=== PATIENT | female | born 1945 | race African-American/Black ===

== ENCOUNTER 2018-02-25 17:26 | Emergency (ER) | payer OTHER, MEDICARE ==
[~2018-02-25 17:26] MED LIST: ALBUTEROL0.09 MG/A1 INH; ALENDRONATE SOD70 M1 PO; ASPIR 8181 MG PO; AUGMENTIN 500M500 MG PO; DILTIAZEM HCL360 MG PO; HYDRODIURIL 112.5 M1 PO; HYDRODIURIL 2525 MG PO; LEVEMIR FL100 UNIT/1 SC; METOPROLOL SUC100 MG PO; MIRALAX119 GM PO; NEXIUM 40MG40 MG PO; NICODERM C14 MG/24 H TOP; NOVOLOG FL100 UNIT/1 SC; ONDANSETRON HYDR4 MG PO; OXYCODONE HCL15 MG PO; OXYCODONE HYDRO30 MG PO; POLYTRIM O200 GTT/BO OPH; PREDNISONE 20MG20 MG PO; ROXICODONE15 MG PO; TYLENOL ARTHRI650 MG PO; ZITHROMAX Z PA250 MG PO; ZOFRAN4 M1 SL
[2018-02-25 18:04] LABS: ABSOLUTE BASOPHIL COUNT 0 /CUMM (0.0-0.2); ABSOLUTE EOSINOPHIL COUNT 0.1 /CUMM (0.0-0.7); ABSOLUTE GRANULOCYTE CT 4.5 /CUMM (1.4-6.5); ABSOLUTE MONOCYTE COUNT 0.4 /CUMM (0.10-0.60); BASOPHIL % 0.2 % (0.0-2.0); MEAN CORPUSCULAR HGB 23.7 PG (27.0-31.0); MEAN CORPUSCULAR HGB CONC 32.3 G/DL (33.0-37.0); MEAN CORPUSCULAR VOLUME 73.3 FL (81.0-99.0); MEAN PLATELET VOLUME 8.5 FL (7.4-10.4); PLATELET COUNT 334 /CUMM (130-400); RBC DISTRIBUTION WIDTH 17.5 % (11.5-14.5); RED BLOOD CELL CT 5.72 /CUMM (4.20-5.40); WHITE BLOOD CELL COUNT 7.1 /CUMM (4.8-10.8)
--- NOTE | 2018-02-25 19:01 | ED GENERAL ADULT ---
History of Present Illness General Chief Complaint: General Adult Stated Complaint: BIBA MULTIPLE COMPLAINTS Source: patient, family, old records Exam Limitations: no limitations Vital Signs & Intake/Output Vital Signs & Intake/Output Vital Signs Date Time Temp Pulse Resp B/P B/P Pulse O2 O2 Flow FiO2 Mean Ox Delivery Rate 02/25 1953 97.9 75 18 116/61 96 Room Air 02/25 1758 93 Nasal 2.0L Cannula 02/25 1737 22 92 Nasal 2.0L Cannula 02/25 1732 87 18 160/80 88 Room Air Allergies Coded Allergies: lisinopril (Severe, ANGIODEMA 02/19/16) Reconcile Medications Albuterol Sulfate (Albuterol Sulfate Hfa) 90 MCG HFA.AER.AD 2 PUFF INH Q4-6 PRN PRN SHORTNESS OF BREATH 90 MCG PER PUFF Alendronate Sodium 70 MG TAB 1 TAB PO Q168 BONES (Reported) TAKES ON SATURDAY Baclofen 10 MG TABLET 1 TAB PO TIDPRN PRN muscle spasm/strain DILTIAZEM HCL (Diltiazem ER) 360 MG CAPSULE.ER 360 MG PO DAILY HTN (Reported) Esomeprazole (Nexium) 40 MG CAPSULE.DR 40 MG PO DAILY AC GERD (Reported) Hydrochlorothiazide (Hydrodiuril 25 MG Tab) 25 MG TABLET 0.5 TAB PO DAILY BP (Reported) Insulin Aspart, Recombinant (Novolog Flexpen) 100 UNIT/ML INSULN.PEN Diabetes ( Reported) below 80 no coverage 80-100 no coverage 101-150 no coverage 151-200 mg/dl 3 units 201-250 mg/dl 6 units 251-300 mg/dl 8 units 301-350 mg/dl 10 units 351-400 mg/dl 12 units come to ED if >400 Insulin Detemir (Levemir Flextouch) 100 UNIT/ML (3 ML) INSULN.PEN 22 UNITS SC QPM DIABETES (Reported) Metoprolol Succinate 100 MG TAB.ER.24H 100 MG PO DAILY HTN (Reported) Ondansetron (Zofran Odt) 4 MG TAB.RAPDIS 1 TAB SL Q8HR PRN NAUSEA ONDANSETRON HCL (Ondansetron Hydrochloride) 4 MG TABLET 1 TAB PO PRN NAUSEA ( Reported) OXYCODONE HCL (Oxycodone HCl) 15 MG TABLET 1 TAB PO Q4-6 PRN PRN PAIN ( Reported) Polyethylene Glycol 3350 (Miralax) 119 GM POWDER 17 GM PO BID CONSTIPATION mix with water, juice, soda, coffee or tea ...TWICE A DAY X 3 DAYS AND THEN EVERY DAY. Polyethylene Glycol 3350 (Miralax) 17 GRAM/DOSE POWDER 17 GM PO DAILY constipation mix with water, juice, soda, coffee or tea Polytrim (Polytrim Eye Drops) 200 GTT/BOT GTT 1 GTT OPH Q6 PRN CONJUNCTIVITIS Polytrim (Polytrim Eye Drops) 10,000 UNIT-1 MG/ML DROPS 1 GTT OPH Q4HR CONJUNCTIVITIS Tramadol HCl (Ultram) 50 MG TABLET 1 TAB PO Q6P PRN severe pain Triage Note: 72F BIBA FOR MULTIPLE COMPLAINTS, PRIMARILY FOCUSED ON ABDOMEN WHICH IS MORE DISTENDED THAN USUAL. REPORTS LAST BM 3 DAYS AGO. CHRONIC OPIOID USE FOR CHRONIC PAIN (HYDROCODONE). DENIES CHEST PAIN. INTERMITTENT SOB NOT DIFFERENT FROM BASELINE, 1PPD X30 YEARS SMOKER. O2 SAT 88% ON ARRIVAL. CHRONIC COUGH WITH CLEAR SPUTUM. ALSO REPORTS MID/LOW BACK PAIN 10/10 UNRELIEVED BY MEDS AT HOME (LAST DOSE 2PM). +N/-V. DENIES FEVERS OR CHILLS. FOCAL NEUROS GROSSLY INTACT, NO FACIAL ASSYMMETRY OR WEAKNESS DEFICITS NOTED. DENIES NUMBNESS/TINGLING. DENIES DYSURIA OR HEMATURIA. Triage Nurses Notes Reviewed? yes Onset: 3 days Duration: day(s):, constant, continues in ED, getting worse Timing: recent history Injury Environment: home Severity: moderate, severe Modifying Factors: Improves With: immobilization, rest. Worsens With: movement. Associated Symptoms: back pain LMP (ages 10-50): post menopausal : No Patient currently breastfeeds: No HPI: 3 days prior to admission patient complains of progressive sharp low back pain constant nonradiating worse with turning bending. She also complains of generalized abdominal discomfort without stool for 3 days. She denies fever chills nausea vomiting diarrhea chest pain cough shortness breath headache dysuria rash bleeding loss of control of bowel bladder. Past History Travel History Traveled to [place] past 21 day No Medical History Any Pertinent Medical History? 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 No Review of Systems Review of Systems Constitutional: Reports: no symptoms. EENTM: Reports: no symptoms. Respiratory: Reports: no symptoms. Cardiovascular: Reports: no symptoms. GI: Reports: see HPI, abdominal pain, constipation. Genitourinary: Reports: no symptoms. Musculoskeletal: Reports: see HPI, back pain. Skin: Reports: no symptoms. Neurological/Psychological: Reports: no symptoms. Hematologic/Endocrine: Reports: no symptoms. Immunologic/Allergic: Reports: no symptoms. All Other Systems: Reviewed and Negative Physical Exam Physical Exam General Appearance: well developed/nourished, alert, awake, anxious, severe distress, obese Head: atraumatic, normal appearance Eyes: Bilateral: normal appearance, PERRL, EOMI. Ears, Nose, Throat: normal pharynx, normal ENT inspection, hearing grossly normal Neck: normal inspection, supple, full range of motion, no midline tenderness Respiratory: normal breath sounds, chest non-tender, no respiratory distress, quiet respiration, lungs clear Cardiovascular: regular rate/rhythm, normal peripheral pulses, norml femoral pulses equa Peripheral Pulses: 4+ carotid (R), 4+ carotid (L) Gastrointestinal: normal bowel sounds, soft, non-tender, no organomegaly, distention Back: normal inspection, decreased range of motion, no vertebral tenderness Extremities: normal inspection, normal capillary refill, normal range of motion, no edema Neurologic/Psych: no motor/sensory deficits, awake, alert, oriented x 3, normal mood/affect, 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 Skin: intact, normal color, warm/dry Lymphatic: no anterior cervical jacques Core Measures ACS in differential dx? No CVA/TIA Diagnosis: No Sepsis Present: No Sepsis Focused Exam Completed? No Progress Differential Diagnoses I considered the following diagnoses in my evaluation of the patient: Spinal stenosis facet arthropathy SBO constipation Plan of Care: Orders Procedure Date/time Status TROPONIN LEVEL 02/26 1740 Complete MAGNESIUM 02/25 174 Complete LIPASE 02/25 174 Complete COMPREHENSIVE METABOLIC PANEL 02/25 174 Complete CBC WITHOUT DIFFERENTIAL 02/26 1740 Complete EKG 02/25 172 Active Current Medications Sig/Otto Start time Last Medication Dose Stop Time Status Admin Flumazenil 0.125 MG ONCE ONE 02/25 2215 AC (Romazicon 0.5MG/5ML 02/26 2216 Inj) Laboratory Tests 02/25/181754: Anion Gap 10, Estimated GFR > 60, BUN/Creatinine Ratio 30.0 H, Glucose 374 H, Calcium 9.4, Magnesium 1.6, Total Bilirubin 0.7, AST 15, ALT 23, Alkaline Phosphatase 98, Troponin I < 0.01, Total Protein 7.8, Albumin 4.3, Globulin 3.5, Albumin/Globulin Ratio 1.2, Lipase 28, CBC w Diff NO MAN DIFF REQ, RBC 5.72 H, MCV 73.3 L, MCH 23.7 L, MCHC 32.3 L, RDW 17.5 H, MPV 8.5, Gran % 64.0, Lymphocytes % 28.7, Monocytes % 6.1, Eosinophils % 1.0, Basophils % 0.2, Absolute Granulocytes 4.5, Absolute Lymphocytes 2.0, Absolute Monocytes 0.4, Absolute Eosinophils 0.1, Absolute Basophils 0 Diagnostic Imaging: Viewed by Me: CT Scan. Discussed w/RAD: CT Scan. Radiology Impression: 1. There is a moderate volume of abdominal ascites now present new since prior CAT scan 05/07/2015. 2. No dilated bowel loop. No evidence for bowel obstruction or bowel wall detail is limited due to the presence of the abdominal ascites. There is a large volume of stool in the colon. No transition point to suggest obstruction. Initial ED EKG: normal axis, normal intervals, normal p-waves, normal QRS complex, normal sinus rhythm, no ST T wave changes Prior EKG: unchanged Rhythm Strip: normal sinus rhythm Comments: Daughter impatient with patient sleeping. Romazicon administered to reverse ativan. Departure Departure Time of Disposition: 2208 Disposition: HOME OR SELF CARE Condition: Stable Clinical Impression Primary Impression: Hyperglycemia Secondary Impressions: Arthritis, lumbar spine, Constipation Referrals: Bailey Garcia APRN (PCP/Family) Departure Forms: Customer Survey General Discharge Information Prescriptions: Current Visit Scripts Polyethylene Glycol 3350 (Miralax) 17 GM PO DAILY #527 GM mix with water, juice, soda, coffee or tea Baclofen 1 TAB PO TIDPRN PRN muscle spasm/strain #30 TAB Tramadol HCl (Ultram) 1 TAB PO Q6P PRN severe pain #30 TAB Critical Care Note Critical Care Note Critical Care Time: 30-74 min (40)
--- NOTE | 2018-02-25 19:20 | CT SCAN REPORT ---
EXAMINATION: CT ABDOMEN AND PELVIS WITHOUT CONTRAST CLINICAL INFORMATION: Small bowel obstruction. COMPARISON: CT scan abdomen pelvis 02/19/2016 TECHNIQUE: Multidetector volumetric imaging was performed from the superior aspect of the liver through the pubic symphysis. Sagittal and coronal reformatted images were obtained on the technologist's workstation. DLP: 254.95 mGy-cm FINDINGS: LUNG BASES: The visualized lung bases are unremarkable. LIVER, GALLBLADDER, AND BILIARY TREE: The liver is normal in size, shape, and attenuation. No focal hepatic lesion or biliary ductal dilatation is present. The gallbladder is unremarkable with no evidence of radiopaque gallstones, gallbladder wall thickening, or obvious pericholecystic inflammatory changes. PANCREAS: Unremarkable. SPLEEN: Unremarkable. ADRENAL GLANDS: Unremarkable. KIDNEYS AND URETERS: Prominent extrarenal pelvis of left kidney again seen similar prior study. There is no hydroureter. No renal or ureteral calculus. There is a stable hypodensity in the upper pole cortex of left kidney consistent with a renal cyst measuring about 2 cm. BLADDER: Unremarkable. GASTROINTESTINAL TRACT: There is limited detail of the bowel due to the presence of abdominal ascites and lack of oral contrast. There is a surgical suture line in the mid central pelvis. There is no dilated bowel loop. There is no transition point to suggest obstruction. There is a large volume of stool throughout the colon. There are diverticula of the colon but no focal bowel wall thickening to suggest diverticulitis. The appendix is not identified. MESENTERY: There is a moderate volume of abdominal ascites. This is new since prior exam 05/07/2015. ABDOMINAL WALL: No significant hernia is appreciated. LYMPH NODES: Normal. VASCULAR: Atherosclerotic vascular wall calcifications of aorta and iliac vessels without aneurysm. PELVIC VISCERA: By history patient has had prior hysterectomy. OSSEOUS STRUCTURES: Degenerative spondylosis of spine with vacuum disc phenomena endplate sclerosis and spurring L4-L5 L5-S1. There is central depression of the superior endplate of the L1 vertebrae that is chronic unchanged since prior CAT scan 05/07/2015. IMPRESSION: 1. There is a moderate volume of abdominal ascites now present new since prior CAT scan 05/07/2015. 2. No dilated bowel loop. No evidence for bowel obstruction or bowel wall detail is limited due to the presence of the abdominal ascites. There is a large volume of stool in the colon. No transition point to suggest obstruction.
[2018-02-25] MEDS ORDERED: BACLOFEN10 M1 PO (20:24)
[2018-02-25] MEDS ORDERED: TRAZODONE HCL50 M1 PO (20:24)
[2018-02-25] MEDS ORDERED: MIRALAX119 GM PO (20:24)
[2018-02-25] MEDS ORDERED: ULTRAM50 M1 PO (20:25)
[2018-02-25 22:40] VITALS: BP 118/59
== END 2018-02-25 22:41 ==
LOC: ERH 17:26
PROVIDERS: Emergency Medicine
DX: E11.65 Type 2 diabetes mellitus with hyperglycemia (principal); M47.816 Spondylosis without myelopathy or radiculopathy, lumbar region; K59.00 Constipation, unspecified
CPT/HCPCS: 74176; 93005; 93010; 96374; 96375; J0131; J1815

== ENCOUNTER 2018-05-03 07:22 | Emergency (ER) | payer OTHER, MEDICARE ==
[~2018-05-03] VITALS: Ht 167.6 cm; Wt 59.0 kg
[~2018-05-03 07:22] MED LIST changes: +BACLOFEN10 M1 PO; -LEVEMIR FL100 UNIT/1 SC; +LEVEMIR FLEX100 U/M1 SC; +NOVOLOG 10300 UNITS/ SC; -NOVOLOG FL100 UNIT/1 SC; +TRAZODONE HCL50 M1 PO; +ULTRAM50 M1 PO
--- NOTE | 2018-05-03 07:59 | ED GI/GU/ABDOMINAL COMPLAINT ---
History of Present Illness General Chief Complaint: General Adult Stated Complaint: BACK PAIN, STOMACH PAIN SINCE AM Source: patient, family, old records Exam Limitations: no limitations Vital Signs & Intake/Output Vital Signs & Intake/Output Vital Signs Date Time Temp Pulse Resp B/P B/P Pulse O2 O2 Flow FiO2 Mean Ox Delivery Rate 05/03 1150 98.0 80 18 174/80 95 Room Air 05/03 0952 83 191/91 05/03 0803 97 Room Air 05/03 0725 97.4 73 20 167/78 94 Room Air Allergies Coded Allergies: lisinopril (Severe, ANGIODEMA 02/19/16) Reconcile Medications Albuterol Sulfate (Albuterol Sulfate Hfa) 90 MCG HFA.AER.AD 2 PUFF INH Q4-6 PRN PRN SHORTNESS OF BREATH 90 MCG PER PUFF Alendronate Sodium 70 MG TAB 1 TAB PO Q168 BONES (Reported) TAKES ON SATURDAY Baclofen 10 MG TABLET 1 TAB PO TIDPRN PRN muscle spasm/strain DILTIAZEM HCL (Diltiazem ER) 360 MG CAPSULE.ER 360 MG PO DAILY HTN (Reported) Esomeprazole (Nexium) 40 MG CAPSULE.DR 40 MG PO DAILY AC GERD (Reported) Hydrochlorothiazide (Hydrodiuril 25 MG Tab) 25 MG TABLET 0.5 TAB PO DAILY BP (Reported) Insulin Aspart, Recombinant (Novolog Flexpen) 100 UNIT/ML INSULN.PEN Diabetes ( Reported) below 80 no coverage 80-100 no coverage 101-150 no coverage 151-200 mg/dl 3 units 201-250 mg/dl 6 units 251-300 mg/dl 8 units 301-350 mg/dl 10 units 351-400 mg/dl 12 units come to ED if >400 Insulin Detemir (Levemir Flextouch) 100 UNIT/ML (3 ML) INSULN.PEN 22 UNITS SC QPM DIABETES (Reported) Metoprolol Succinate 100 MG TAB.ER.24H 100 MG PO DAILY HTN (Reported) Ondansetron (Zofran Odt) 4 MG TAB.RAPDIS 1 TAB SL Q8HR PRN NAUSEA ONDANSETRON HCL (Ondansetron Hydrochloride) 4 MG TABLET 1 TAB PO PRN NAUSEA ( Reported) OXYCODONE HCL (Oxycodone HCl) 15 MG TABLET 1 TAB PO Q4-6 PRN PRN PAIN ( Reported) Polyethylene Glycol 3350 (Miralax) 119 GM POWDER 17 GM PO BID CONSTIPATION mix with water, juice, soda, coffee or tea ...TWICE A DAY X 3 DAYS AND THEN EVERY DAY. Polyethylene Glycol 3350 (Miralax) 17 GRAM/DOSE POWDER 17 GM PO DAILY constipation mix with water, juice, soda, coffee or tea Polyethylene Glycol 3350 (Miralax) 17 GRAM/DOSE POWDER 17 GM PO DAILY constipation mix with water, juice, soda, coffee or tea Polytrim (Polytrim Eye Drops) 200 GTT/BOT GTT 1 GTT OPH Q6 PRN CONJUNCTIVITIS Polytrim (Polytrim Eye Drops) 10,000 UNIT-1 MG/ML DROPS 1 GTT OPH Q4HR CONJUNCTIVITIS Tramadol HCl (Ultram) 50 MG TABLET 1 TAB PO Q6P PRN severe pain Triage Note: PT C/O MID ABDOMINAL PAIN THAT WOKE HER FROM HER SLEEP AN HOUR AGO. STATES PAIN RADIATES INTO HER BACK. PT C/O NAUSEA Triage Nurses Notes Reviewed? yes LMP (ages 10-50): post menopausal ? n Is pt currently ? No Onset: Abrupt Duration: hour(s):, constant, continues in ED, getting worse Timing: recent history Quality/Severity: aching, severe Location: generalized abdomen Radiation: chest Activities at Onset: sleep Prior Abdominal Problems: similar symptoms Past Sexual History: Unobtainable at this time Modifying Factors: Worsens With: palpation. Associated Symptoms: abdominal pain, nausea/vomiting HPI: Prior to admission patient awoke with severe generalized constant abdominal pain radiating to her back associated with nausea vomiting. She denies fever chills diarrhea chest pain cough shortness of breath headache dysuria rash bleeding. Past History Travel History Traveled to [place] past 21 day No Medical History Any Pertinent Medical History? 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 No Review of Systems Review of Systems Constitutional: Reports: no symptoms. EENTM: Reports: no symptoms. Respiratory: Reports: no symptoms. Cardiovascular: Reports: no symptoms. Genitourinary: Reports: no symptoms. Musculoskeletal: Reports: no symptoms. Skin: Reports: no symptoms. Neurological/Psychological: Reports: no symptoms. Hematologic/Endocrine: Reports: no symptoms. Immunologic/Allergic: Reports: no symptoms. All Other Systems: Reviewed and Negative Physical Exam Physical Exam General Appearance: well developed/nourished, alert, awake, anxious, severe distress Head: atraumatic, normal appearance Eyes: Bilateral: normal appearance, PERRL, EOMI, normal inspection. Ears, Nose, Throat, Mouth: hearing grossly normal, moist mucous membrane Neck: normal inspection, supple, full range of motion, normal alignment Respiratory: normal breath sounds, chest non-tender, no respiratory distress, quiet respiration, lungs clear Cardiovascular: regular rate/rhythm, normal peripheral pulses, norml femoral pulses equa Peripheral Pulses: 4+ carotid (R), 4+ carotid (L) Gastrointestinal: soft, non-tender, no organomegaly, abnormal bowel sounds Back: normal inspection, normal range of motion, no vertebral tenderness Extremities: normal range of motion, no ligament instability Neurologic/Psych: no motor/sensory deficits, awake, alert, oriented x 3, normal gait, normal mood/affect, 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 No Sepsis Present: No Sepsis Focused Exam Completed? No Progress Differential Diagnosis: bowel obstruction, gastritis, pancreatitis Plan of Care: Orders Procedure Date/time Status TROPONIN LEVEL 05/03 749 Complete PROTHROMBIN TIME 05/03 749 Complete LIPASE 05/03 749 Complete LACTIC ACID 05/03 749 Complete COMPREHENSIVE METABOLIC PANEL 05/03 749 Complete CBC WITHOUT DIFFERENTIAL 05/03 749 Complete EKG 05/03 749 Active Laboratory Tests 05/03/18 1049: Lactic Acid Cancelled 05/03/18 0802: Anion Gap 9, Estimated GFR > 60, BUN/Creatinine Ratio 24.3, Glucose 286 H, Lactic Acid 2.1, Calcium 9.8, Total Bilirubin 0.4, AST 18, ALT 21, Alkaline Phosphatase 85, Troponin I < 0.01, Total Protein 7.1, Albumin 3.8, Globulin 3.3, Albumin/Globulin Ratio 1.2, Lipase 28, PT 10.3, INR 0.95, CBC w Diff MAN DIFF ORDERED, RBC 6.35 H, MCV 73.9 L, MCH 23.9 L, MCHC 32.3 L, RDW 17.6 H, MPV 8.7, Gran % 40.2 L, Lymphocytes % 43.9, Monocytes % 13.7 H, Eosinophils % 2.2, Basophils % 0, Absolute Granulocytes 3.0, Absolute Lymphocytes 3.2, Absolute Monocytes 1.0 H, Absolute Eosinophils 0.2, Absolute Basophils 0, Platelet Estimate ADEQUATE, Hypochromic-Microcytic 1+, Anisocytosis 1+, Microcytic Cells 1+, Target Cells 1+ Initial ED EKG: normal axis, normal intervals, normal p-waves, normal QRS complex, normal sinus rhythm, no ST T wave changes Prior EKG: unchanged Rhythm Strip: normal sinus rhythm Comments: Improved after interventions Departure Departure Time of Disposition: 1140 Disposition: HOME OR SELF CARE Condition: Stable Clinical Impression Primary Impression: Constipation due to opioid therapy Secondary Impressions: Abdominal pain Referrals: Bailey Garcia APRN (PCP/Family) Departure Forms: Customer Survey General Discharge Information Prescriptions: Current Visit Scripts Polyethylene Glycol 3350 (Miralax) 17 GM PO DAILY #527 GM mix with water, juice, soda, coffee or tea
[2018-05-03 08:23] LABS: ABSOLUTE BASOPHIL COUNT 0 /CUMM (0.0-0.2); ABSOLUTE EOSINOPHIL COUNT 0.2 /CUMM (0.0-0.7); ABSOLUTE LYMPH COUNT 3.2 /CUMM (1.2-3.4); BASOPHIL % 0 % (0.0-2.0); EOSINOPHIL % 2.2 % (0-5); GRANULOCYTE % 40.2 % (42.2-75.2); HEMATOCRIT 46.9 % (37-47); MEAN CORPUSCULAR HGB 23.9 PG (27.0-31.0); MEAN CORPUSCULAR HGB CONC 32.3 G/DL (33.0-37.0); MEAN CORPUSCULAR VOLUME 73.9 FL (81.0-99.0); MEAN PLATELET VOLUME 8.7 FL (7.4-10.4); PLATELET COUNT 339 /CUMM (130-400); RBC DISTRIBUTION WIDTH 17.6 % (11.5-14.5); RED BLOOD CELL CT 6.35 /CUMM (4.20-5.40); WHITE BLOOD CELL COUNT 7.4 /CUMM (4.8-10.8)
[2018-05-03 08:25] LABS: PT 10.3 SEC (9.4-12.5)
[2018-05-03] MEDS ORDERED: MIRALAX119 GM PO (11:41)
[2018-05-03 11:50] VITALS: BP 174/80
== END 2018-05-03 11:50 ==
LOC: ERH 07:22
PROVIDERS: Emergency Medicine
DX: K59.03 Drug induced constipation (principal)
CPT/HCPCS: 93005; 93010; 96372; 96374; 96375; J2765

== ENCOUNTER 2018-05-08 21:17 | Inpatient (IN) | payer OTHER, MEDICARE ==
[~2018-05-08] VITALS: Ht 167.6 cm; Wt 62.2 kg
[~2018-05-08 21:17] MED LIST changes: +LEVEMIR FL100 UNIT/1 SC; -LEVEMIR FLEX100 U/M1 SC; -NOVOLOG 10300 UNITS/ SC; +NOVOLOG FL100 UNIT/1 SC
[2018-05-08] MEDS ORDERED: IBUPROFEN600 M1 PO (22:15)
[2018-05-08] MEDS ORDERED: ZOHYDRO PO (22:16)
[2018-05-08] MEDS ORDERED: HYDROCODON-ACE1 EAC1 PO (22:16)
--- NOTE | 2018-05-08 22:18 | ED GI/GU/ABDOMINAL COMPLAINT ---
History of Present Illness General Chief Complaint: Abdominal Pain/Flank Pain Stated Complaint: BIBA FOR ABDOMINAL PAIN Source: patient, old records, EMS Exam Limitations: no limitations Vital Signs & Intake/Output Vital Signs & Intake/Output Vital Signs Date Time Temp Pulse Resp B/P B/P Pulse O2 O2 Flow FiO2 Mean Ox Delivery Rate 05/09 0200 72 16 153/70 88 Room Air Room Air 05/08 2140 97.9 58 18 154/72 97 Nasal 2.0L Cannula ED Intake and Output 05/09 0000 05/08 1200 Intake Total 1000 Output Total Balance 1000 Intake, IV 1000 Allergies Coded Allergies: lisinopril (Severe, ANGIODEMA 02/19/16) Reconcile Medications Albuterol Sulfate (Proair Hfa) 90 MCG HFA.AER.AD 2 PUF INH AD PRN RESP. ( Reported) Aspirin (Ecotrin*) 81 MG TABLET.DR 1 TAB PO DAILY HEART/BP (Reported) Diltiazem HCl (Taztia Xt) 360 MG CAPSULE.ER 1 CAP PO DAILY HEART/BP (Reported ) Esomeprazole (Nexium) 40 MG CAPSULE.DR 1 CAP PO DAILY GI (Reported) Hydrochlorothiazide 25 MG TABLET 1 TAB PO DAILY DIURETIC (Reported) Hydrocodone Bitartrate (Zohydro ER) 40 MG CAP.ER.12H 1 CAP PO BID PAIN ( Reported) Hydrocodone/Acetaminophen (Hydrocodon-Acetaminophn 10-325) 10 MG-325 MG TABLET 1 TAB PO 4XDP PRN PAIN (Reported) Ibuprofen 600 MG TABLET 1 TAB PO BID PAIN/INFLAMMATION (Reported) with food Insulin Aspart, Recombinant (Novolog Flexpen) 100 UNIT/ML INSULN.PEN DM ( Reported) Insulin Detemir (Levemir Flextouch) 100 UNIT/ML (3 ML) INSULN.PEN 22 UNITS SC QHS DM (Reported) Losartan Potassium 50 MG TABLET 1 TAB PO DAILY BP (Reported) Metoprolol Succinate 100 MG TAB.ER.24H 1 TAB PO DAILY HEART/BP (Reported) Polyethylene Glycol 3350 (Miralax) 17 GRAM/DOSE POWDER 17 GM PO DAILY constipation mix with water, juice, soda, coffee or tea Triage Note: 72 YEAR OLD FEMALE C/O SEVERE ABD PAIN THAT RADIATES TO LOWER BACK. PT REPORTS SHE HAS NOT HAD A BM IN A WEEK. ARRIVES TO ED ALERT AND ORIETED X3, CLEAR SPEECH. DENIES N/V. Triage Nurses Notes Reviewed? yes LMP (ages 10-50): post menopausal ? n Is pt currently ? No Onset: Last week Duration: day(s):, constant, continues in ED, getting worse Timing: recent history Quality/Severity: aching, fullness, severe Location: generalized abdomen Radiation: no radiation Activities at Onset: rest Prior Abdominal Problems: similar symptoms Past Sexual History: Unobtainable at this time Modifying Factors: Worsens With: palpation. Associated Symptoms: abdominal pain HPI: Patient reports no significant stool for one week. She complains of abdominal distention nausea and pain. She denies fever chills vomiting diarrhea chest pain cough shortness of breath headache dysuria rash bleeding. Past History Travel History Traveled to [place] past 21 day No Medical History Any Pertinent Medical History? 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 No Review of Systems Review of Systems Constitutional: Reports: no symptoms. EENTM: Reports: no symptoms. Respiratory: Reports: no symptoms. Cardiovascular: Reports: no symptoms. GI: Reports: see HPI, constipation, changes in stool. Genitourinary: Reports: no symptoms. Musculoskeletal: Reports: no symptoms. Skin: Reports: no symptoms. Neurological/Psychological: Reports: no symptoms. Hematologic/Endocrine: Reports: no symptoms. Immunologic/Allergic: Reports: no symptoms. All Other Systems: Reviewed and Negative Physical Exam Physical Exam General Appearance: well developed/nourished, alert, awake, anxious, moderate distress Head: atraumatic, normal appearance Eyes: Bilateral: normal appearance, PERRL, EOMI, normal inspection. Ears, Nose, Throat, Mouth: hearing grossly normal, moist mucous membrane Neck: normal inspection, supple, full range of motion, normal alignment Respiratory: normal breath sounds, chest non-tender, no respiratory distress, quiet respiration, lungs clear Cardiovascular: regular rate/rhythm, normal peripheral pulses, norml femoral pulses equa Peripheral Pulses: 4+ carotid (R), 4+ carotid (L) Gastrointestinal: normal bowel sounds, no organomegaly, distention, tenderness Back: normal inspection, normal range of motion, no vertebral tenderness Extremities: normal range of motion, no ligament instability Neurologic/Psych: no motor/sensory deficits, awake, alert, oriented x 3, normal gait, normal 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 No Sepsis Present: No Sepsis Focused Exam Completed? No Progress Differential Diagnosis: bowel obstruction, gastritis, pancreatitis, PUD/GERD Plan of Care: Orders Procedure Date/time Status Admit to inpatient 05/09 0122 Active NGT 05/09 0122 Active Intake & Output 05/09 UNK Active FingerStick- Glucose 05/09 UNK Active LIPASE 05/08 2150 Complete COMPREHENSIVE METABOLIC PANEL 05/08 2150 Complete CBC WITHOUT DIFFERENTIAL 05/08 2150 Complete EKG 05/08 2119 Active Current Medications Sig/Otto Start time Last Medication Dose Stop Time Status Admin Insulin Detemir 11 UNITS AT BEDTIME 05/09 2100 UNVr (Levemir) Diltiazem HCl 360 MG DAILY 05/09 0900 UNVr (Cardizem CD) Metoprolol Succinate 100 MG DAILY 05/09 0900 UNVr (Toprol Xl) Pantoprazole Sodium 40 MG DAILY 05/09 0900 UNVr (Protonix) Insulin Human Regular 0 Q6 05/09 0600 UNVr (NovoLIN R) Albuterol Sulfate 2 PUF Q6-PRN PRN 05/09 0245 UNVr (Ventolin) Dextrose/Sodium 1,000 ML Q8H 05/09 0245 UNVr Chloride (D5-Normal Saline) Laboratory Tests 05/08/184: Anion Gap 8, Estimated GFR > 60, BUN/Creatinine Ratio 26.3 H, Glucose 147 H, Calcium 10.1, Total Bilirubin 0.4, AST 17, ALT 32, Alkaline Phosphatase 78, Total Protein 6.8, Albumin 3.7, Globulin 3.1, Albumin/Globulin Ratio 1.2, Lipase 27, CBC w Diff NO MAN DIFF REQ, RBC 5.64 H, MCV 73.2 L, MCH 23.7 L, MCHC 32.4 L, RDW 18.1 H, MPV 8.5, Gran % 68.1, Lymphocytes % 24.2, Monocytes % 5.4, Eosinophils % 2.2, Basophils % 0.1, Absolute Granulocytes 5.4, Absolute Lymphocytes 1.9, Absolute Monocytes 0.4, Absolute Eosinophils 0.2, Absolute Basophils 0 Diagnostic Imaging: Viewed by Me: Radiology Read, CT Scan. Discussed w/RAD: Radiology Read, CT Scan. Radiology Impression: Diffuse small bowel dilatation concerning for high-grade small bowel obstruction., High-grade small bowel obstruction with transition point in the central lower abdomen. Multiple hypoattenuating lesions seen in both kidneys, some of which are too small to characterize, but the larger lesions appearing as cysts. Initial ED EKG: normal axis, normal intervals, normal p-waves, normal QRS complex, normal sinus rhythm, no ST T wave changes Prior EKG: unchanged Rhythm Strip: normal sinus rhythm Departure Departure Time of Disposition: 99 Disposition: STILL A PATIENT Condition: Stable Clinical Impression Primary Impression: Small bowel obstruction Secondary Impressions: Therapeutic opioid induced constipation Referrals: Bailey Garcia APRN (PCP/Family) Departure Forms: Customer Survey General Discharge Information Admission Note Spoke With: Vic MATIAS,Rohan Erazo Documentation of Exam: Documentation of any treatments & extenuating circumstances including Concerns Regarding Discharge (functional status, medication knowledge or non-compliance, living conditions, etc.) that warrant an admission rather than observation: NG tube to low intermittent suction IV hydration nothing by mouth surgical evaluation and management medication adjustment continuing care discharge planning. Critical Care Note Critical Care Note Critical Care Time: 30-74 min (40)
[2018-05-08] MEDS ORDERED: NEXIUM40 M1 PO (22:19)
[2018-05-08] MEDS ORDERED: LOSARTAN POTASS50 M1 PO (22:20)
[2018-05-08] MEDS ORDERED: METOPROLOL SUC100 M2 PO (22:20)
[2018-05-08] MEDS ORDERED: HYDROCHLOROTHIA25 M1 PO (22:20)
[2018-05-08] MEDS ORDERED: TAZTIA XT360 M1 PO (22:21)
[2018-05-08] MEDS ORDERED: ASPIRIN EC81 M1 PO (22:22)
[2018-05-08] MEDS ORDERED: PROAIR HFA8.5 GM INH (22:22)
[2018-05-08 22:29] LABS: ABSOLUTE BASOPHIL COUNT 0 /CUMM (0.0-0.2); ABSOLUTE EOSINOPHIL COUNT 0.2 /CUMM (0.0-0.7); ABSOLUTE GRANULOCYTE CT 5.4 /CUMM (1.4-6.5); ABSOLUTE LYMPH COUNT 1.9 /CUMM (1.2-3.4); ABSOLUTE MONOCYTE COUNT 0.4 /CUMM (0.10-0.60); BASOPHIL % 0.1 % (0.0-2.0); EOSINOPHIL % 2.2 % (0-5); MEAN CORPUSCULAR HGB 23.7 PG (27.0-31.0); MEAN CORPUSCULAR HGB CONC 32.4 G/DL (33.0-37.0); MEAN CORPUSCULAR VOLUME 73.2 FL (81.0-99.0); MEAN PLATELET VOLUME 8.5 FL (7.4-10.4); PLATELET COUNT 333 /CUMM (130-400); RBC DISTRIBUTION WIDTH 18.1 % (11.5-14.5); RED BLOOD CELL CT 5.64 /CUMM (4.20-5.40); WHITE BLOOD CELL COUNT 7.9 /CUMM (4.8-10.8)
[2018-05-08 22:31] LABS: GRANULOCYTE % 68.1 % (42.2-75.2); HEMATOCRIT 41.3 % (37-47)
--- NOTE | 2018-05-09 00:05 | RADIOLOGY REPORT ---
EXAMINATION: XR ABDOMEN MULTIPLE VIEWS CLINICAL INDICATION: Abdominal distention. No stool x1 week. Presumptive diagnosis: Obstipation COMPARISON: CT dated 02/25/2018 TECHNIQUE: AP upright and supine views of the abdomen of the abdomen. FINDINGS: There is diffuse small bowel dilatation throughout the central abdomen. Chain frederic are present in the left mid abdomen. There is a small amount of stool and gas within the colon. No intraperitoneal free air. No pathologic calcifications are identified. Calcific atherosclerosis is present in the abdominal aorta and iliac arteries. There is degenerative disc disease in the lumbar spine. IMPRESSION: Diffuse small bowel dilatation concerning for high-grade small bowel obstruction.
--- NOTE | 2018-05-09 00:54 | CT SCAN REPORT ---
EXAMINATION: CT ABDOMEN AND PELVIS WITH CONTRAST CLINICAL INFORMATION: Small bowel obstruction as seen on plain film. COMPARISON: Radiographs performed 05/08/2018. TECHNIQUE: Multidetector volumetric imaging was performed of the abdomen and pelvis following IV administration of 95 mL of Optiray 320 intravenous contrast. Sagittal and coronal reformatted images were obtained on the technologist's workstation. DLP: 248 mGy-cm FINDINGS: LUNG BASES: The visualized lung bases are unremarkable. LIVER, GALLBLADDER, AND BILIARY TREE: The liver is normal in size, shape, and attenuation. No focal hepatic lesion or biliary ductal dilatation is present. The gallbladder is unremarkable with no evidence of radiopaque gallstones, gallbladder wall thickening, or obvious pericholecystic inflammatory changes. PANCREAS: Unremarkable. SPLEEN: Unremarkable. ADRENAL GLANDS: There is fullness of the left adrenal gland. The right adrenal gland is unremarkable. KIDNEYS AND URETERS: The kidneys are normal in size, shape, and attenuation. No hydronephrosis, hydroureter, or calculi seen. No perinephric stranding. Lobular appearance of the renal cortices. Multiple hypoattenuating lesions are seen within both kidneys, many of which are too small to characterize. Left upper pole renal cyst measuring 1.2 cm. BLADDER: Unremarkable. GASTROINTESTINAL TRACT: The distal esophagus is dilated and fluid-filled. There is prominent dilatation of the stomach with air-fluid level. There is diffuse small bowel dilatation with air-fluid levels. There is small amount of stool seen within the colon, which is otherwise fairly decompressed. The transition point is identified in the central lower abdomen, as seen on series 2 image 46. There is fecalization of small bowel seen beyond this level. Otherwise, the distal small bowel is decompressed. No free air. Small amount of free fluid in the pelvis. ABDOMINAL WALL: Small fat-containing right inguinal hernia with small amount of internal fluid. LYMPH NODES: Normal. VASCULAR: Normal caliber aorta. Moderate atherosclerotic calcifications. Retroaortic left renal vein. PELVIC VISCERA: Limited evaluation on this study. No gross adnexal mass. OSSEOUS STRUCTURES: No acute or suspicious osseous abnormality. Multilevel degenerative changes are seen throughout the spine, greatest at L4-L5 and L5-S1. IMPRESSION: High-grade small bowel obstruction with transition point in the central lower abdomen. Multiple hypoattenuating lesions seen in both kidneys, some of which are too small to characterize, but the larger lesions appearing as cysts.
--- NOTE | 2018-05-09 02:26 | History & Physical Pre-Op ---
Amie Menchaca 05/09/18 0225: General Information and HPI History of Present Illness: 72yoF presents to ED with complaints of abdominal pain, n, v, and constipation. Well known to Dr. Ashton and surgical service, with hx recurrent SBOs treated both surgically and conservatively, keenan GANT (2007), keenan GANT,LASHAWN rsxn (2006). Small BM yesterday and earlier in the week, received relistor in Ed and had large bm. Dose have chronic pain from OA and takes hydrocodone daily (prescribed 40mg bid with 10mg q6prn). VOmited large amt during ngt placement attempt by ED staff, feeling better now. Denies sob, cp, conde, fever, chills. Reluctant to allow NGT placement, though has agreed. Allergies/Medications Allergies: Coded Allergies: lisinopril (Severe, ANGIODEMA 02/19/16) Home Med list Albuterol Sulfate (Proair Hfa) 90 MCG HFA.AER.AD 2 PUF INH AD PRN RESP. ( Reported) Aspirin (Ecotrin*) 81 MG TABLET.DR 1 TAB PO DAILY HEART/BP (Reported) Diltiazem HCl (Taztia Xt) 360 MG CAPSULE.ER 1 CAP PO DAILY HEART/BP (Reported ) Esomeprazole (Nexium) 40 MG CAPSULE.DR 1 CAP PO DAILY GI (Reported) Hydrochlorothiazide 25 MG TABLET 1 TAB PO DAILY DIURETIC (Reported) Hydrocodone Bitartrate (Zohydro ER) 40 MG CAP.ER.12H 1 CAP PO BID PAIN ( Reported) Hydrocodone/Acetaminophen (Hydrocodon-Acetaminophn 10-325) 10 MG-325 MG TABLET 1 TAB PO 4XDP PRN PAIN (Reported) Ibuprofen 600 MG TABLET 1 TAB PO BID PAIN/INFLAMMATION (Reported) with food Insulin Aspart, Recombinant (Novolog Flexpen) 100 UNIT/ML INSULN.PEN DM ( Reported) Insulin Detemir (Levemir Flextouch) 100 UNIT/ML (3 ML) INSULN.PEN 22 UNITS SC QHS DM (Reported) Losartan Potassium 50 MG TABLET 1 TAB PO DAILY BP (Reported) Metoprolol Succinate 100 MG TAB.ER.24H 1 TAB PO DAILY HEART/BP (Reported) Polyethylene Glycol 3350 (Miralax) 17 GRAM/DOSE POWDER 17 GM PO DAILY constipation mix with water, juice, soda, coffee or tea Past History Medical History Cardiovascular: hypertension Gastrointestinal: diverticulitis, recurrent SBOs Musculoskeletal: degen joint disease, osteoarthritis, DDD Psychiatric: depression Endocrine: diabetes History of MRSA: No History of VRE: No History of CDIFF: No Surgical History Pertinent Surgical History: appendectomy, breast biopsy (x 2 (2013, 2014)), hysterectomy (abdominal), -alexx, 2008 -alexx, sb resection for sbo 2006 lysis of adhesions 2007 Past Family/Social History Family History Relations & Conditions if any FATHER Relation not specified for: Diabetes mellitus in father Psychosocial History Who Do You Live With? child (with down syndrome) Services at Home None Exam & Diagnostic Data Last 24 Hrs of Vital Signs/I&O Vital Signs Date Time Temp Pulse Resp B/P B/P Pulse O2 O2 Flow FiO2 Mean Ox Delivery Rate 05/09 0200 72 16 153/70 88 Room Air Room Air 05/08 2140 97.9 58 18 154/72 97 Nasal 2.0L Cannula Intake & Output 05/09 0800 05/09 0000 05/08 1600 Intake Total 1000 Output Total 1000 Balance -1000 1000 Intake, IV 1000 Number 3 Bowel Movements Output, 1000 Emesis Physical Exam: gen- gen card- s1s2 rrr pulm-ctab abd- distended, ttp, tympanic, well healed surgical incisions, no r/g ext- calves soft nt bl Last 24 Hrs of Labs/Jf: Laboratory Tests 05/08/182213: Anion Gap 8, Estimated GFR > 60, BUN/Creatinine Ratio 26.3 H, Glucose 147 H, Calcium 10.1, Total Bilirubin 0.4, AST 17, ALT 32, Alkaline Phosphatase 78, Total Protein 6.8, Albumin 3.7, Globulin 3.1, Albumin/Globulin Ratio 1.2, Lipase 27, CBC w Diff NO MAN DIFF REQ, RBC 5.64 H, MCV 73.2 L, MCH 23.7 L, MCHC 32.4 L, RDW 18.1 H, MPV 8.5, Gran % 68.1, Lymphocytes % 24.2, Monocytes % 5.4, Eosinophils % 2.2, Basophils % 0.1, Absolute Granulocytes 5.4, Absolute Lymphocytes 1.9, Absolute Monocytes 0.4, Absolute Eosinophils 0.2, Absolute Basophils 0 Diagnostic Data Other Results SERVICE DATE: 05/08/18-2312 EXAM TYPE: RAD - [id number] VIEWS EXAMINATION: XR ABDOMEN MULTIPLE VIEWS CLINICAL INDICATION: Abdominal distention. No stool x1 week. Presumptive diagnosis: Obstipation COMPARISON: CT dated 02/25/2018 TECHNIQUE: AP upright and supine views of the abdomen of the abdomen. FINDINGS: There is diffuse small bowel dilatation throughout the central abdomen. Chain frederic are present in the left mid abdomen. There is a small amount of stool and gas within the colon. No intraperitoneal free air. No pathologic calcifications are identified. Calcific atherosclerosis is present in the abdominal aorta and iliac arteries. There is degenerative disc disease in the lumbar spine. IMPRESSION: Diffuse small bowel dilatation concerning for high-grade small bowel obstruction SERVICE DATE: 05/09/18-0010 EXAM TYPE: CAT - CT ABD & PELVIS W IV CONTRAST EXAMINATION: CT ABDOMEN AND PELVIS WITH CONTRAST CLINICAL INFORMATION: Small bowel obstruction as seen on plain film. COMPARISON: Radiographs performed 05/08/2018. TECHNIQUE: Multidetector volumetric imaging was performed of the abdomen and pelvis following IV administration of 95 mL of Optiray 320 intravenous contrast. Sagittal and coronal reformatted images were obtained on the technologist's workstation. DLP: 248 mGy-cm FINDINGS: LUNG BASES: The visualized lung bases are unremarkable. LIVER, GALLBLADDER, AND BILIARY TREE: The liver is normal in size, shape, and attenuation. No focal hepatic lesion or biliary ductal dilatation is present. The gallbladder is unremarkable with no evidence of radiopaque gallstones, gallbladder wall thickening, or obvious pericholecystic inflammatory changes. PANCREAS: Unremarkable. SPLEEN: Unremarkable. ADRENAL GLANDS: There is fullness of the left adrenal gland. The right adrenal gland is unremarkable. KIDNEYS AND URETERS: The kidneys are normal in size, shape, and attenuation. No hydronephrosis, hydroureter, or calculi seen. No perinephric stranding. Lobular appearance of the renal cortices. Multiple hypoattenuating lesions are seen within both kidneys, many of which are too small to characterize. Left upper pole renal cyst measuring 1.2 cm. BLADDER: Unremarkable. GASTROINTESTINAL TRACT: The distal esophagus is dilated and fluid-filled. There is prominent dilatation of the stomach with air-fluid level. There is diffuse small bowel dilatation with air-fluid levels. There is small amount of stool seen within the colon, which is otherwise fairly decompressed. The transition point is identified in the central lower abdomen, as seen on series 2 image 46. There is fecalization of small bowel seen beyond this level. Otherwise, the distal small bowel is decompressed. No free air. Small amount of free fluid in the pelvis. ABDOMINAL WALL: Small fat-containing right inguinal hernia with small amount of internal fluid. LYMPH NODES: Normal. VASCULAR: Normal caliber aorta. Moderate atherosclerotic calcifications. Retroaortic left renal vein. PELVIC VISCERA: Limited evaluation on this study. No gross adnexal mass. OSSEOUS STRUCTURES: No acute or suspicious osseous abnormality. Multilevel degenerative changes are seen throughout the spine, greatest at L4-L5 and L5-S1. IMPRESSION: High-grade small bowel obstruction with transition point in the central lower abdomen. Multiple hypoattenuating lesions seen in both kidneys, some of which are too small to characterize, but the larger lesions appearing as cysts. Assessment/Plan Assessment/Plan: A- 72yoF with high grade SBO, PMHX GERD, HTN, DM, OA with chronic pain on daily hydrocodone, depression, asthma, with abdominal pain, n/v, stable. P- admit to surgery npo ivf ngt to [facility]- inserted, 500cc out on insertion, green-yellow bilious iv meds prn antiemetics, pain meds hodl home asa serial labs serial abd exams strict i&os oon, ambulate hepsq, alps dw dr ashtno As Ranked By This Provider Problem List: 1. SMALL BOWEL OBSTRUCTION 2. Chronic pain 3. Diabetes mellitus type 1 4. GERD 5. Hypertension Rohan Ashton MD 05/09/18 1023: Attending MD Review Statement Attending Statement Attending MD Statement: examined this patient, discuss w/resident/PA/MOTOR VEHICLE EXAMINER, reviewed images Attending Assessment/Plan: This is a 72-year-old woman well known to our surgical service. She presents with recurrent intestinal obstruction, resume to be due to adhesive disease. There is nothing on physical examination, imaging or laboratory data to suggest threatened loop of small bowel requiring emergent exploration. Given the resolution of her prior episodes of a bowel obstruction with conservative measures, the overall impression is that this will results continuously as well. Despite the dilatation of her small bowel, there is preservation of bowel function. Plan for NG tube decompression and hydration with serial abdominal examinations.
--- NOTE | 2018-05-09 03:41 | Admission Core Measures ---
Acute Coronary Syndrome (CM) ACS Core Measures Acute Coronary Syndrome Diagnosis No Congestive Heart Failure (NEW) CHF Core Measures Congestive Heart Failure Diagnosis No Cerebrovascular Accident CVA Core Measures CVA/TIA Diagnosis No Venous Thromboembolism VTE Core Odette (View Protocol) VTE Risk Factors Age>40 No Mechanical VTE Prophylaxis d/t N/A MechProphylax Ordered No VTE Pharm Prophylaxis d/t NA PharmProphylax ordered Problem List As ranked by this Provider includes Assessment & Plan 1. Small bowel obstruction HOME MEDS Home Med List Albuterol Sulfate (Proair Hfa) 90 MCG HFA.AER.AD 2 PUF INH AD PRN RESP. ( Reported) Aspirin (Ecotrin*) 81 MG TABLET.DR 1 TAB PO DAILY HEART/BP (Reported) Diltiazem HCl (Taztia Xt) 360 MG CAPSULE.ER 1 CAP PO DAILY HEART/BP (Reported ) Esomeprazole (Nexium) 40 MG CAPSULE.DR 1 CAP PO DAILY GI (Reported) Hydrochlorothiazide 25 MG TABLET 1 TAB PO DAILY DIURETIC (Reported) Hydrocodone Bitartrate (Zohydro ER) 40 MG CAP.ER.12H 1 CAP PO BID PAIN ( Reported) Hydrocodone/Acetaminophen (Hydrocodon-Acetaminophn 10-325) 10 MG-325 MG TABLET 1 TAB PO 4XDP PRN PAIN (Reported) Ibuprofen 600 MG TABLET 1 TAB PO BID PAIN/INFLAMMATION (Reported) Insulin Detemir (Levemir Flextouch) 100 UNIT/ML (3 ML) INSULN.PEN 22 UNITS SC QHS DM (Reported) Losartan Potassium 50 MG TABLET 1 TAB PO DAILY BP (Reported) Metoprolol Succinate 100 MG TAB.ER.24H 1 TAB PO DAILY HEART/BP (Reported) Polyethylene Glycol 3350 (Miralax) 17 GRAM/DOSE POWDER 17 GM PO DAILY constipation
[2018-05-09 04:45] VITALS: BP 142/54
[2018-05-09 06:30] VITALS: BP 138/56
[2018-05-09 07:56] LABS: ABSOLUTE BASOPHIL COUNT 0 /CUMM (0.0-0.2); ABSOLUTE EOSINOPHIL COUNT 0.1 /CUMM (0.0-0.7); ABSOLUTE LYMPH COUNT 0.5 /CUMM (1.2-3.4); ABSOLUTE MONOCYTE COUNT 0.5 /CUMM (0.10-0.60); EOSINOPHIL % 1.3 % (0-5); RED BLOOD CELL CT 4.52 /CUMM (4.20-5.40)
[2018-05-09 08:08] LABS: ABSOLUTE GRANULOCYTE CT 7.8 /CUMM (1.4-6.5); BASOPHIL % 0 % (0.0-2.0); MEAN CORPUSCULAR HGB CONC 32.3 G/DL (33.0-37.0); MEAN CORPUSCULAR VOLUME 74.5 FL (81.0-99.0); MEAN PLATELET VOLUME 9.1 FL (7.4-10.4); PLATELET COUNT 261 /CUMM (130-400); RBC DISTRIBUTION WIDTH 18.1 % (11.5-14.5); WHITE BLOOD CELL COUNT 8.9 /CUMM (4.8-10.8)
[2018-05-09 08:17] LABS: PT 10.8 SEC (9.4-12.5); PTT 23 SEC (25-37)
[2018-05-09 08:18] LABS: HEMATOCRIT 33.7 % (37-47)
[2018-05-09 09:22] LABS: GRANULOCYTE % 87.8 % (42.2-75.2)
[2018-05-09 11:48] VITALS: BP 160/70
[2018-05-09 14:06] VITALS: BP 130/80
[2018-05-09 22:00] VITALS: BP 142/60
[2018-05-10 06:20] VITALS: BP 146/64
--- NOTE | 2018-05-10 08:29 | PN- General Surgery ---
Subjective Subjective: HD#2 SBO resting comfortably this am feeling less bloated today drake cp, sob states she had bm last evening continued ng output Objective Vital Signs and I&Os Vital Signs Date Time Temp Pulse Resp B/P B/P Pulse O2 O2 Flow FiO2 Mean Ox Delivery Rate 05/10 0620 98.0 82 16 146/64 95 Nasal Cannula 05/10 0000 Nasal 2.0L Cannula 05/09 2200 97.8 73 18 142/60 95 Nasal 2.0L Cannula 05/09 1600 94 Nasal 2.0L Cannula 05/09 1406 97.5 67 20 130/80 94 Room Air 05/09 1156 71 160/70 05/09 1148 71 160/70 97 Nasal 2.0L Cannula Intake & Output 05/10 1600 05/10 0800 05/10 0000 05/09 1600 05/09 0800 05/09 0000 Intake Total 1000 1000 1100 187.5 1000 Output Total 550 6795 336 5899 Balance 450 0 500 -1912.5 1000 Intake, IV 1000 1000 1050 187.5 1000 Intake, Oral 0 0 0 Intake, Other 50 Number 1 3 Bowel Movements Output, 1000 Emesis Output, 550 812 573 4119 Gastric Drainage Output, Urine 600 200 0 Patient 141 lb Weight Weight Bed scale Measurement Method Physical Exam: cv: rrr lungs: clear abd: softly distended tender to palp no guarding or peritonitis ext: warm, distal cms intact Assessment/Plan Assessment/Plan stable plan f/u labs this am mv abd xray this am serial abd exams Core Measures Venous Thromboembolism VTE Risk Factors Age>40 No Mechanical VTE Prophylaxis d/t N/A MechProphylax Ordered No VTE Pharm Prophylaxis d/t NA PharmProphylax ordered
[2018-05-10 09:14] LABS: ABSOLUTE BASOPHIL COUNT 0 /CUMM (0.0-0.2); ABSOLUTE EOSINOPHIL COUNT 0.1 /CUMM (0.0-0.7); ABSOLUTE MONOCYTE COUNT 0.3 /CUMM (0.10-0.60); BASOPHIL % 0.1 % (0.0-2.0); EOSINOPHIL % 2.2 % (0-5); GRANULOCYTE % 54.8 % (42.2-75.2); HEMATOCRIT 38.3 % (37-47); MEAN CORPUSCULAR HGB 24.1 PG (27.0-31.0); MEAN CORPUSCULAR HGB CONC 32.5 G/DL (33.0-37.0); MEAN CORPUSCULAR VOLUME 74.2 FL (81.0-99.0); PLATELET COUNT 311 /CUMM (130-400); RBC DISTRIBUTION WIDTH 17.9 % (11.5-14.5); RED BLOOD CELL CT 5.16 /CUMM (4.20-5.40); WHITE BLOOD CELL COUNT 5.5 /CUMM (4.8-10.8)
--- NOTE | 2018-05-10 15:11 | RADIOLOGY REPORT ---
EXAMINATION: XR ABDOMEN MULTIPLE VIEWS CLINICAL INDICATION: Large NG tube output. Follow-up of small bowel obstruction. COMPARISON: CT scan of the abdomen and pelvis dated 05/09/2018. KUB dated 05/08/2018. TECHNIQUE: 2 views of the abdomen. FINDINGS: Enteric tube is seen in the left upper quadrant with tip projected over the expected region of the gastric fundus/body. The previously seen multiple gas-distended loops of small bowel have resolved. No abnormal distention of small bowel loops is seen. No free air is seen. There is a large amount of fecal material seen throughout the colon. Mild gaseous and fecal distention of the rectum is seen. The cardiomediastinal silhouette is borderline enlarged. Calcification and tortuosity of the aorta is seen. Lungs bilaterally are symmetrically hyperinflated with thickening of the central airways, suggestive of obstructive lung disease. Osteopenia is seen with mild S-shaped thoracolumbar scoliosis and moderate degenerative changes in the lower lumbar spine. Enthesopathic ossification at the right greater trochanter is also noted. Atherosclerotic calcifications of the aorta and iliac and femoral vessels is seen. IMPRESSION: 1. Resolution of previously seen small bowel obstruction. 2. Enteric tube tip projects over the left upper quadrant in expected location of the gastric fundus/body. 3. Large volume of fecal residue within the entire colon and rectum.
[2018-05-10 15:36] VITALS: BP 130/56
--- NOTE | 2018-05-10 17:16 | PN- General Surgery ---
Subjective Subjective: Follow-up of small bowel obstruction She is thirsty denies significant abdominal pain pass some gas no bowel movement no nausea Objective Vital Signs and I&Os I reviewed Vital Signs Date Time Temp Pulse Resp B/P B/P Pulse O2 O2 Flow FiO2 Mean Ox Delivery Rate 05/10 1600 Nasal 2.0L Cannula 05/10 1536 97.8 81 20 130/56 93 05/10 1423 74 158/78 05/10 0800 95 Nasal 2.0L Cannula 05/10 0620 98.0 82 16 146/64 95 Nasal Cannula 05/10 0000 Nasal 2.0L Cannula 05/09 2200 97.8 73 18 142/60 95 Nasal 2.0L Cannula I reviewed Intake & Output 05/10 1600 05/10 0800 05/10 0000 05/09 1600 05/09 0800 05/09 0000 Intake Total 1000 1000 1100 187.5 1000 Output Total 881 447 6567 600 2100 Balance -300 450 0 500 -1912.5 1000 Intake, IV 1000 1000 1050 187.5 1000 Intake, Oral 0 0 0 Intake, Other 50 Number 1 3 Bowel Movements Output, 1000 Emesis Output, 300 550 318 083 9120 Gastric Drainage Output, Urine 600 200 0 Patient 141 lb Weight Weight Bed scale Measurement Method Physical Exam: Constitutional: no acute distress no pain Eyes: sclera anicteric ENMT: moist mucous membranes Cardiovascular: S1-S2 no murmurs no peripheral edema Respiratory: clear to auscultation with normal respiratory effort and no intercostal retractions GI: abdomen soft nontender nondistended Extremities / lymphatics: free range of motion no peripheral edema Skin: no jaundice no rashes warm, nondiaphoretic Psychiatric: mood and affect are appropriate and alert and oriented to person place and time Current Medications: I reviewed Current Medications Sig/Otto Start time Last Medication Dose Route Stop Time Status Admin Albuterol Sulfate 2 PUF Q6-PRN PRN 05/09 0245 AC INH Dextrose/Sodium 1,000 ML Q8H 05/09 0245 AC 05/10 Chloride IV 0335 Diltiazem HCl 90 MG Q6 05/10 1200 AC 05/10 PO 1423 Diltiazem HCl 360 MG DAILY 05/09 0900 DC 05/09 PO 1158 Heparin Sodium 5,000 UNIT Q8 05/09 0600 AC 05/10 (Porcine) SC 1424 Insulin Detemir 11 UNITS AT BEDTIME 05/09 2100 05/09 MT 2033 Insulin Human Regular 2 UNITS .STK-MED ONE 05/10 0023 DC IV 05/10 0024 Insulin Human Regular 0 Q6 05/09 0600 05/10 SC 1324 Metoprolol Succinate 100 MG DAILY 05/09 0900 DC 05/09 PO 1156 Metoprolol Tartrate 50 MG BID 05/10 1128 AC 05/10 PO 1423 Morphine Sulfate 2 MG Q2-3 HRS NEEDED.. 05/09 0345 05/10 IV 0616 Morphine Sulfate 4 MG Q2-3 HRS NEEDED.. 05/09 0345 05/10 IV 1552 Nicotine 21 MG DAILY 05/09 1130 05/10 TOP 1105 Ondansetron HCl 4 MG Q6-PRN PRN 05/09 0315 05/10 IV 1552 Pantoprazole Sodium 40 MG DAILY 05/09 0600 AC 05/10 IV 1105 Results Last 48 Hours of Labs: I reviewed Laboratory Tests 05/10 05/09 0807 0633 Chemistry Sodium (137 - 145 mmol/L) 141 Cancelled Potassium (3.5 - 5.1 mmol/L) 3.4 L Cancelled Chloride (98 - 107 mmol/L) 102 Cancelled Carbon Dioxide (22 - 30 mmol/L) 32 H Cancelled Anion Gap (5 - 16) 6 Cancelled BUN (7 - 17 mg/dL) 10 Cancelled Creatinine (0.5 - 1.0 mg/dL) 0.5 Cancelled Estimated GFR (>60 ml/min) > 60 BUN/Creatinine Ratio (7 - 25 %) 20.0 Cancelled Glucose Cancelled Lactic Acid Cancelled Phosphorus (2.5 - 4.5 mg/dL) 3.2 Cancelled Magnesium (1.6 - 2.3 mg/dL) 1.8 Cancelled Coagulation PT (9.4 - 12.5 SEC) 10.8 INR (0.90 - 1.19) 0.99 APTT (25 - 37 SEC) 23 L Hematology CBC w Diff NO MAN DIFF REQ NO MAN DIFF REQ WBC (4.8 - 10.8 /CUMM) 5.5 8.9 RBC (4.20 - 5.40 /CUMM) 5.16 4.52 Hgb (12.0 - 16.0 G/DL) 12.4 10.9 L Hct (37 - 47 %) 38.3 33.7 L MCV (81.0 - 99.0 FL) 74.2 L 74.5 L MCH (27.0 - 31.0 PG) 24.1 L 24.0 L MCHC (33.0 - 37.0 G/DL) 32.5 L 32.3 L RDW (11.5 - 14.5 %) 17.9 H 18.1 H Plt Count (130 - 400 /CUMM) 311 261 MPV (7.4 - 10.4 FL) 9.0 9.1 Gran % (42.2 - 75.2 %) 54.8 87.8 H Lymphocytes % (20.5 - 51.1 %) 36.8 5.7 L Monocytes % (1.7 - 9.3 %) 6.1 5.2 Eosinophils % (0 - 5 %) 2.2 1.3 Basophils % (0.0 - 2.0 %) 0.1 0 Absolute Granulocytes (1.4 - 6.5 /CUMM) 3.0 7.8 H Absolute Lymphocytes (1.2 - 3.4 /CUMM) 2.0 0.5 L Absolute Monocytes (0.10 - 0.60 /CUMM) 0.3 0.5 Absolute Eosinophils (0.0 - 0.7 /CUMM) 0.1 0.1 Absolute Basophils (0.0 - 0.2 /CUMM) 0 0 05/09 05/08 0315 2214 Chemistry Sodium (137 - 145 mmol/L) 135 L Potassium (3.5 - 5.1 mmol/L) 4.0 Chloride (98 - 107 mmol/L) 95 L Carbon Dioxide (22 - 30 mmol/L) 32 H Anion Gap (5 - 16) 8 BUN (7 - 17 mg/dL) 21 H Creatinine (0.5 - 1.0 mg/dL) 0.8 Estimated GFR (>60 ml/min) > 60 BUN/Creatinine Ratio (7 - 25 %) 26.3 H Glucose (65 - 99 mg/dL) 147 H Calcium (8.4 - 10.2 mg/dL) 10.1 Phosphorus Cancelled Total Bilirubin (0.2 - 1.3 mg/dL) 0.4 AST (14 - 36 U/L) 17 ALT (9 - 52 U/L) 32 Alkaline Phosphatase (<127 U/L) 78 Total Protein (6.3 - 8.2 g/dL) 6.8 Albumin (3.5 - 5.0 g/dL) 3.7 Globulin (1.9 - 4.2 gm/dL) 3.1 Albumin/Globulin Ratio (1.1 - 2.2 %) 1.2 Lipase (23 - 300 U/L) 27 Coagulation APTT Cancelled Hematology CBC w Diff NO MAN DIFF REQ WBC (4.8 - 10.8 /CUMM) 7.9 RBC (4.20 - 5.40 /CUMM) 5.64 H Hgb (12.0 - 16.0 G/DL) 13.4 Hct (37 - 47 %) 41.3 MCV (81.0 - 99.0 FL) 73.2 L MCH (27.0 - 31.0 PG) 23.7 L MCHC (33.0 - 37.0 G/DL) 32.4 L RDW (11.5 - 14.5 %) 18.1 H Plt Count (130 - 400 /CUMM) 333 MPV (7.4 - 10.4 FL) 8.5 Gran % (42.2 - 75.2 %) 68.1 Lymphocytes % (20.5 - 51.1 %) 24.2 Monocytes % (1.7 - 9.3 %) 5.4 Eosinophils % (0 - 5 %) 2.2 Basophils % (0.0 - 2.0 %) 0.1 Absolute Granulocytes (1.4 - 6.5 /CUMM) 5.4 Absolute Lymphocytes (1.2 - 3.4 /CUMM) 1.9 Absolute Monocytes (0.10 - 0.60 /CUMM) 0.4 Absolute Eosinophils (0.0 - 0.7 /CUMM) 0.2 Absolute Basophils (0.0 - 0.2 /CUMM) 0 Assessment/Plan Assessment/Plan Impression is gradually resolving SBO. I reviewed today's multiview x-ray compared to yesterday's CT and earlier multiview x-ray on PACS myself, there is a big difference is more gas in the colon and there is no more obvious dilated small bowel as before, along with some flatus suggests resolution however the NG output is still significant last shift, 300. So the next step would be when to remove the NG tube but definitely still no diet. Problem List: 1. SMALL BOWEL OBSTRUCTION Core Measures Venous Thromboembolism VTE Risk Factors Age>40 No Mechanical VTE Prophylaxis d/t N/A MechProphylax Ordered No VTE Pharm Prophylaxis d/t NA PharmProphylax ordered
[2018-05-10 21:41] VITALS: BP 140/68
[2018-05-11 02:03] VITALS: BP 134/68
[2018-05-11 06:51] VITALS: BP 134/68; BP 140/72
--- NOTE | 2018-05-11 12:00 | PN- General Surgery ---
See Addendum Subjective Subjective: Overnight ngt output noted, pt still c/o some mild discomfort throughout abdomen. Notes belching but denies nausea or vomitting. Acknowledges small amounts of flatus but no bm since ER. Denies chest pain and sob. Objective Vital Signs and I&Os Vital Signs Date Time Temp Pulse Resp B/P B/P Pulse O2 O2 Flow FiO2 Mean Ox Delivery Rate 05/11 0943 60 132/86 05/11 0651 98.1 56 16 140/72 95 Nasal 2.0L Cannula 05/11 0203 98.4 54 16 134/68 94 Nasal 2.0L Cannula 05/11 0000 Nasal 2.0L Cannula 05/10 2141 98.6 66 18 140/68 93 05/10 2122 66 140/68 05/10 1600 Nasal 2.0L Cannula 05/10 1536 97.8 81 20 130/56 93 05/10 1423 74 158/78 Intake & Output 05/11 1600 05/11 0800 05/11 0000 05/10 1600 05/10 0800 05/10 0000 Intake Total 0301 042 8635 1000 Output Total 400 450 793 932 0111 Balance 600 50 -300 450 0 Intake, IV 1219 471 8111 1000 Intake, Oral 0 Output, 400 150 300 550 400 Gastric Drainage Output, Urine 300 600 Patient 143 lb Weight Weight Bed scale Measurement Method Physical Exam: General: Alert and oriented x3, no acute distress Cardiac: RRR, s1s2 Pulm: CTA, non-labored respiratory effort Abdomen: Softly distended, +bs, ngt with dark, bilious output Extremities: Moves all extremities, distal sensation grossly intact. Bilateral calves soft and non-tender. Assessment/Plan Assessment/Plan This is a 72 year old female, hospital day 2 with recurrent sbo. NGT clamping trial last night with greater than 200 cc output post clamp and an additional 200 overnight. Continues to have diffuse abdominal pain, noted to be less in intensity. Continue current regimen for now -Continue ngt, will consider clamping trial again with evidence of improved bowel function -Will get abdominal multiview if output does not improve Recommend oob Recommend incentive spirometer Hep sub q for dvt ppx Alps for dvt ppx Will discuss plan of care with Dr. Bullock Core Measures Venous Thromboembolism VTE Risk Factors Age>40 No Mechanical VTE Prophylaxis d/t N/A MechProphylax Ordered No VTE Pharm Prophylaxis d/t NA PharmProphylax ordered
[2018-05-11 13:06] LABS: ABSOLUTE BASOPHIL COUNT 0 /CUMM (0.0-0.2); ABSOLUTE EOSINOPHIL COUNT 0.2 /CUMM (0.0-0.7); ABSOLUTE GRANULOCYTE CT 3.2 /CUMM (1.4-6.5); ABSOLUTE LYMPH COUNT 1.6 /CUMM (1.2-3.4); ABSOLUTE MONOCYTE COUNT 0.4 /CUMM (0.10-0.60); BASOPHIL % 0.1 % (0.0-2.0); EOSINOPHIL % 3.7 % (0-5); GRANULOCYTE % 59.2 % (42.2-75.2); HEMATOCRIT 41.5 % (37-47); MEAN CORPUSCULAR HGB 23.9 PG (27.0-31.0); MEAN CORPUSCULAR HGB CONC 32.3 G/DL (33.0-37.0); MEAN CORPUSCULAR VOLUME 74.2 FL (81.0-99.0); MEAN PLATELET VOLUME 9.1 FL (7.4-10.4); PLATELET COUNT 314 /CUMM (130-400); RED BLOOD CELL CT 5.59 /CUMM (4.20-5.40); WHITE BLOOD CELL COUNT 5.3 /CUMM (4.8-10.8)
[2018-05-11 15:11] VITALS: BP 140/72
[2018-05-11 21:59] VITALS: BP 142/64
[2018-05-12 02:15] VITALS: BP 144/68
[2018-05-12 06:00] VITALS: BP 154/78
--- NOTE | 2018-05-12 07:23 | PN- General Surgery ---
See Addendum Subjective Subjective: Denies pain. No nausea. Passing some flatus. No bms. "I'm hungry". Objective Vital Signs and I&Os Vital Signs Date Time Temp Pulse Resp B/P B/P Pulse O2 O2 Flow FiO2 Mean Ox Delivery Rate 05/12 0600 98.2 60 18 154/78 95 Nasal Cannula 05/12 0215 98.2 57 18 144/68 96 Nasal Cannula 05/12 0000 Nasal 2.0L Cannula 05/11 2159 98.4 63 19 142/64 93 Nasal Cannula 05/11 2122 63 142/64 05/11 1600 Nasal 2.0L Cannula 05/11 1511 98.7 56 18 140/72 96 05/11 0943 60 132/86 05/11 0800 Nasal 2.0L Cannula Intake & Output 05/12 0800 05/12 0000 05/11 1600 05/11 0800 05/11 0000 05/10 1600 Intake Total 400 1020 1000 500 Output Total 350 300 575 400 450 300 Balance -350 100 445 600 50 -300 Intake, IV 373 841 0787 500 Intake, Oral 45 Number 0 Bowel Movements Output, 200 400 150 300 Gastric Drainage Output, Urine 350 300 375 300 Patient 143 lb Weight Weight Bed scale Measurement Method Physical Exam: General - alert & oriented x 3. comfortable. no acute distress. Lungs - clear bilaterally. no w/r/r. Cardiac - s1s2. reg. Abdomen - soft. nontender. nondistended. Extremities - warm bilaterally. no c/c/e. calves soft and nontender b/l. Current Medications: Current Medications Sig/Otto Start time Last Medication Dose Route Stop Time Status Admin Albuterol Sulfate 2 PUF Q6-PRN PRN 05/09 0245 AC INH Dextrose/Sodium 1,000 ML Q8H 05/09 0245 DC 05/11 Chloride IV 1413 Diltiazem HCl 90 MG Q6H 05/10 2000 AC 05/12 PO 0227 Heparin Sodium 5,000 UNIT Q8 05/09 0600 AC 05/12 (Porcine) SC 0612 Insulin Aspart 2 UNITS .STK-MED ONE 05/11 1839 DC SC 05/11 184 Insulin Detemir 11 UNITS AT BEDTIME 05/09 2100 DC 05/10 SC 212 Insulin Human Regular 2 UNITS .STK-MED ONE 05/11 1848 DC IV 05/11 1849 Insulin Human Regular 2 UNITS .STK-MED ONE 05/11 1205 DC IV 05/11 1206 Insulin Human Regular 0 Q6 05/09 0600 05/12 SC 0615 Magnesium Sulfate 1 GM ONCE ONE 05/11 2030 DC 05/11 Dextrose/Water 100 ML IV 05/12 0029 2125 Metoprolol Tartrate 50 MG BID 05/10 1128 AC 05/11 PO 2122 Morphine Sulfate 2 MG Q2-3 HRS NEEDED.. 05/09 0345 AC 05/12 IV 0407 Morphine Sulfate 4 MG Q2-3 HRS NEEDED.. 05/09 0345 AC 05/11 IV 1845 Nicotine 21 MG DAILY 05/09 1130 05/11 TOP 0943 Ondansetron HCl 4 MG Q6-PRN PRN 05/09 0315 05/10 IV 1552 Pantoprazole Sodium 40 MG DAILY 05/09 0600 AC 05/11 IV 0943 Potassium Chloride 20 MEQ Q10H 05/11 2030 AC 05/11 Dextrose/Sodium 1,000 ML IV 2121 Chloride Potassium Chloride 10 MEQ Q1H 05/11 1630 DC 05/11 IV 05/11 1731 1731 Results Last 48 Hours of Labs: Laboratory Tests 05/11 05/10 1100 0807 Chemistry Sodium (137 - 145 mmol/L) 142 141 Potassium (3.5 - 5.1 mmol/L) 3.4 L 3.4 L Chloride (98 - 107 mmol/L) 104 102 Carbon Dioxide (22 - 30 mmol/L) 30 32 H Anion Gap (5 - 16) 8 6 BUN (7 - 17 mg/dL) 7 10 Creatinine (0.5 - 1.0 mg/dL) 0.5 0.5 Estimated GFR (>60 ml/min) > 60 > 60 BUN/Creatinine Ratio (7 - 25 %) 14.0 20.0 Phosphorus (2.5 - 4.5 mg/dL) 3.2 Magnesium (1.6 - 2.3 mg/dL) 1.8 1.8 Hematology CBC w Diff NO MAN DIFF REQ NO MAN DIFF REQ WBC (4.8 - 10.8 /CUMM) 5.3 5.5 RBC (4.20 - 5.40 /CUMM) 5.59 H 5.16 Hgb (12.0 - 16.0 G/DL) 13.4 12.4 Hct (37 - 47 %) 41.5 38.3 MCV (81.0 - 99.0 FL) 74.2 L 74.2 L MCH (27.0 - 31.0 PG) 23.9 L 24.1 L MCHC (33.0 - 37.0 G/DL) 32.3 L 32.5 L RDW (11.5 - 14.5 %) 18.0 H 17.9 H Plt Count (130 - 400 /CUMM) 314 311 MPV (7.4 - 10.4 FL) 9.1 9.0 Gran % (42.2 - 75.2 %) 59.2 54.8 Lymphocytes % (20.5 - 51.1 %) 30.1 36.8 Monocytes % (1.7 - 9.3 %) 6.9 6.1 Eosinophils % (0 - 5 %) 3.7 2.2 Basophils % (0.0 - 2.0 %) 0.1 0.1 Absolute Granulocytes (1.4 - 6.5 /CUMM) 3.2 3.0 Absolute Lymphocytes (1.2 - 3.4 /CUMM) 1.6 2.0 Absolute Monocytes (0.10 - 0.60 /CUMM) 0.4 0.3 Absolute Eosinophils (0.0 - 0.7 /CUMM) 0.2 0.1 Absolute Basophils (0.0 - 0.2 /CUMM) 0 0 Assessment/Plan Assessment/Plan This 72 year old female is HD#3 with recurrent sbo, hypokalemia ng tube removed yesterday. may consider clears today f/u labs replete k / mg if needed oob/ambulation hep sc - dvt ppx levemir held while npo accuchecks / riss home meds ordered will d/w Core Measures Venous Thromboembolism VTE Risk Factors Age>40 No Mechanical VTE Prophylaxis d/t N/A MechProphylax Ordered No VTE Pharm Prophylaxis d/t NA PharmProphylax ordered
[2018-05-12 08:33] LABS: ABSOLUTE BASOPHIL COUNT 0 /CUMM (0.0-0.2); ABSOLUTE EOSINOPHIL COUNT 0.1 /CUMM (0.0-0.7); ABSOLUTE GRANULOCYTE CT 3.4 /CUMM (1.4-6.5); ABSOLUTE LYMPH COUNT 1.8 /CUMM (1.2-3.4); ABSOLUTE MONOCYTE COUNT 0.2 /CUMM (0.10-0.60); BASOPHIL % 0.9 % (0.0-2.0); GRANULOCYTE % 61.6 % (42.2-75.2); HEMATOCRIT 40.2 % (37-47); MEAN CORPUSCULAR HGB 23.8 PG (27.0-31.0); MEAN CORPUSCULAR HGB CONC 32.2 G/DL (33.0-37.0); MEAN CORPUSCULAR VOLUME 73.8 FL (81.0-99.0); PLATELET COUNT 314 /CUMM (130-400); RBC DISTRIBUTION WIDTH 17.5 % (11.5-14.5); RED BLOOD CELL CT 5.46 /CUMM (4.20-5.40); WHITE BLOOD CELL COUNT 5.6 /CUMM (4.8-10.8)
[2018-05-12 14:46] VITALS: BP 140/85
[2018-05-12 22:06] VITALS: BP 136/70
[2018-05-13 07:05] VITALS: BP 180/88
--- NOTE | 2018-05-13 08:33 | PN- General Surgery ---
Subjective Subjective: FEELS WELL. PASSING FLATUS. NO BM. TOLERATED CLEAR LIQUIDS WITHOUT NAUSEA OR ABDOMINAL PAIN. Objective Vital Signs and I&Os Vital Signs Date Time Temp Pulse Resp B/P B/P Pulse O2 O2 Flow FiO2 Mean Ox Delivery Rate 05/13 08 98.7 76 20 180/88 05/13 0705 98.7 76 20 180/88 93 Nasal 2.0L Cannula 05/12 2206 98.7 53 136/70 93 Room Air 05/12 2018 60 158/68 05/12 1446 98.4 67 18 140/85 94 Room Air 05/12 0840 98.2 60 18 154/78 Intake & Output 05/13 1600 05/13 0800 05/13 0000 05/12 1600 05/12 0800 05/12 0000 Intake Total 480 360 700 400 Output Total 500 250 350 300 Balance -20 110 350 100 Intake, IV 700 400 Intake, Oral 480 360 Number 0 0 Bowel Movements Output, Urine 500 250 350 300 Patient 137 lb 143 lb Weight Physical Exam: GEN; NAD. LOOKS WELL. A/O X 3 HEENT; ANICTERIC, PERRL, EOMI ABD; SOFT, FLAT. NT, ND. EXT, NO C/C/E Current Medications: Current Medications Sig/Otto Start time Last Medication Dose Route Stop Time Status Admin Acetaminophen 650 MG Q6P PRN 05/12 1230 AC 05/12 PO 2035 Albuterol Sulfate 2 PUF Q6-PRN PRN 05/09 0245 AC INH Diltiazem HCl 90 MG Q6H 05/10 2000 AC 05/13 PO 0826 Heparin Sodium 5,000 UNIT Q8 05/09 0600 05/13 (Porcine) SC 0630 Insulin Human Regular 1 UNITS .STK-MED ONE 05/13 0027 DC IV 05/13 0028 Insulin Human Regular 6 UNITS .STK-MED ONE 05/12 1824 DC IV 05/12 1825 Insulin Human Regular 6 UNITS .STK-MED ONE 05/12 1215 DC IV 05/12 1216 Insulin Human Regular 0 Q6 05/09 0600 05/13 SC 0708 Metoprolol Tartrate 50 MG BID 05/10 1128 AC 05/13 PO 0826 Morphine Sulfate 4 MG Q4P PRN 05/12 1715 AC 05/13 IV 0628 Morphine Sulfate 2 MG Q4P PRN 05/12 1230 AC 05/12 IV 1604 Morphine Sulfate 2 MG Q2-3 HRS NEEDED.. 05/09 0345 CO 05/12 IV 0407 Morphine Sulfate 4 MG Q2-3 HRS NEEDED.. 05/09 0345 CO 05/12 IV 1108 Nicotine 21 MG DAILY 05/09 1130 05/13 TOP 0826 Ondansetron HCl 4 MG Q6-PRN PRN 05/09 0315 05/10 IV 1552 Pantoprazole Sodium 40 MG DAILY 05/09 0600 05/13 IV 0826 Patient Medication 1 ED ONE ONE 05/12 1945 DC Teaching ED 05/12 194 Potassium Chloride 40 MEQ ONCE ONE 05/12 1215 DC 05/12 PO 05/12 1216 1243 Potassium Chloride 20 MEQ Q10H 05/11 2030 CO 05/11 Dextrose/Sodium 1,000 ML IV 2121 Chloride Potassium Phosphate 15 mMol ONE ONE 05/12 1215 CO 05/12 Dextrose/Water 250 ML IV 05/12 1619 1605 Results Last 48 Hours of Labs: Laboratory Tests 05/12 05/11 0650 1100 Chemistry Sodium (137 - 145 mmol/L) 140 142 Potassium (3.5 - 5.1 mmol/L) 3.5 3.4 L Chloride (98 - 107 mmol/L) 102 104 Carbon Dioxide (22 - 30 mmol/L) 28 30 Anion Gap (5 - 16) 10 8 BUN (7 - 17 mg/dL) 4 L 7 Creatinine (0.5 - 1.0 mg/dL) 0.5 0.5 Estimated GFR (>60 ml/min) > 60 > 60 BUN/Creatinine Ratio (7 - 25 %) 8.0 14.0 Phosphorus (2.5 - 4.5 mg/dL) 2.1 L Magnesium (1.6 - 2.3 mg/dL) 1.9 1.8 Hematology CBC w Diff NO MAN DIFF REQ NO MAN DIFF REQ WBC (4.8 - 10.8 /CUMM) 5.6 5.3 RBC (4.20 - 5.40 /CUMM) 5.46 H 5.59 H Hgb (12.0 - 16.0 G/DL) 13.0 13.4 Hct (37 - 47 %) 40.2 41.5 MCV (81.0 - 99.0 FL) 73.8 L 74.2 L MCH (27.0 - 31.0 PG) 23.8 L 23.9 L MCHC (33.0 - 37.0 G/DL) 32.2 L 32.3 L RDW (11.5 - 14.5 %) 17.5 H 18.0 H Plt Count (130 - 400 /CUMM) 314 314 MPV (7.4 - 10.4 FL) 9.0 9.1 Gran % (42.2 - 75.2 %) 61.6 59.2 Lymphocytes % (20.5 - 51.1 %) 32.0 30.1 Monocytes % (1.7 - 9.3 %) 3.5 6.9 Eosinophils % (0 - 5 %) 2.0 3.7 Basophils % (0.0 - 2.0 %) 0.9 0.1 Absolute Granulocytes (1.4 - 6.5 /CUMM) 3.4 3.2 Absolute Lymphocytes (1.2 - 3.4 /CUMM) 1.8 1.6 Absolute Monocytes (0.10 - 0.60 /CUMM) 0.2 0.4 Absolute Eosinophils (0.0 - 0.7 /CUMM) 0.1 0.2 Absolute Basophils (0.0 - 0.2 /CUMM) 0 0 Assessment/Plan Assessment/Plan RESOLVED SBO. ADVANCE DIET. PLAN FOR DISCHARGE HOME TOMORROW PENDING TOLERANCE. D/C IVF. Problem List: 1. SMALL BOWEL OBSTRUCTION Core Measures Venous Thromboembolism VTE Risk Factors Age>40 No Mechanical VTE Prophylaxis d/t N/A MechProphylax Ordered No VTE Pharm Prophylaxis d/t NA PharmProphylax ordered
--- NOTE | 2018-05-13 08:43 | PN- General Surgery ---
Subjective Subjective: Patient feeling overall improved but nervous about her improvement. Denies BM but is passing flatus. Does elude to some hiccups and burping. Tolerating clears , ambulating and voiding without any difficulty. Occasional twinges of pain in her right lower quadrant otherwise pain nearly resolved. Denies any other associated issues or complaints. Objective Vital Signs and I&Os Vital Signs Date Time Temp Pulse Resp B/P B/P Pulse O2 O2 Flow FiO2 Mean Ox Delivery Rate 05/13 08 98.7 76 20 180/88 05/13 0705 98.7 76 20 180/88 93 Nasal 2.0L Cannula 05/12 2206 98.7 53 136/70 93 Room Air 05/12 2018 60 158/68 05/12 1446 98.4 67 18 140/85 94 Room Air Intake & Output 05/13 1600 05/13 0800 05/13 0000 05/12 1600 05/12 0805/12 0000 Intake Total 120 480 360 700 400 Output Total 400 500 250 350 300 Balance -280 -20 110 350 100 Intake, IV 700 400 Intake, Oral 120 480 360 Number 0 0 Bowel Movements Output, Urine 400 500 250 350 300 Patient 137 lb 143 lb Weight Physical Exam: General: A, A, NAD Abdomen: S, ND, NT Extremities: No clubbing, cyanosis or edema Current Medications: Current Medications Sig/Otto Start time Last Medication Dose Route Stop Time Status Admin Acetaminophen 650 MG Q6P PRN 05/12 1230 AC 05/12 PO 2035 Albuterol Sulfate 2 PUF Q6-PRN PRN 05/09 0245 AC INH Diltiazem HCl 90 MG Q6H 05/10 2000 AC 05/13 PO 0826 Heparin Sodium 5,000 UNIT Q8 05/09 0600 AC 05/13 (Porcine) SC 0630 Insulin Human Regular 1 UNITS .STK-MED ONE 05/13 0027 DC IV 05/13 0028 Insulin Human Regular 6 UNITS .STK-MED ONE 05/12 1824 DC IV 05/12 1825 Insulin Human Regular 6 UNITS .STK-MED ONE 05/12 1215 DC IV 05/12 1216 Insulin Human Regular 0 Q6 05/09 0600 AC 05/13 SC 0708 Metoprolol Tartrate 50 MG BID 05/10 1128 AC 05/13 PO 0826 Morphine Sulfate 4 MG Q4P PRN 05/12 1715 DC 05/13 IV 0628 Morphine Sulfate 2 MG Q4P PRN 05/12 1230 05/13 IV 1108 Morphine Sulfate 2 MG Q2-3 HRS NEEDED.. 05/09 0345 VT 05/12 IV 0407 Morphine Sulfate 4 MG Q2-3 HRS NEEDED.. 05/09 0345 VT 05/12 IV 1108 Nicotine 21 MG DAILY 05/09 1130 05/13 TOP 0826 Ondansetron HCl 4 MG Q6-PRN PRN 05/09 0315 05/10 IV 1552 Pantoprazole Sodium 40 MG DAILY 05/09 0600 05/13 IV 0826 Patient Medication 1 ED ONE ONE 05/12 1945 DC Teaching ED 05/12 1946 Potassium Chloride 40 MEQ ONCE ONE 05/12 1215 DC 05/12 PO 05/12 1216 1243 Potassium Chloride 20 MEQ Q10H 05/11 2030 DC 05/11 Dextrose/Sodium 1,000 ML IV 2121 Chloride Potassium Phosphate 15 mMol ONE ONE 05/12 1215 DC 05/12 Dextrose/Water 250 ML IV 05/12 1619 1605 Results Last 48 Hours of Labs: Laboratory Tests 05/12 0650 Chemistry Sodium (137 - 145 mmol/L) 140 Potassium (3.5 - 5.1 mmol/L) 3.5 Chloride (98 - 107 mmol/L) 102 Carbon Dioxide (22 - 30 mmol/L) 28 Anion Gap (5 - 16) 10 BUN (7 - 17 mg/dL) 4 L Creatinine (0.5 - 1.0 mg/dL) 0.5 Estimated GFR (>60 ml/min) > 60 BUN/Creatinine Ratio (7 - 25 %) 8.0 Phosphorus (2.5 - 4.5 mg/dL) 2.1 L Magnesium (1.6 - 2.3 mg/dL) 1.9 Hematology CBC w Diff NO MAN DIFF REQ WBC (4.8 - 10.8 /CUMM) 5.6 RBC (4.20 - 5.40 /CUMM) 5.46 H Hgb (12.0 - 16.0 G/DL) 13.0 Hct (37 - 47 %) 40.2 MCV (81.0 - 99.0 FL) 73.8 L MCH (27.0 - 31.0 PG) 23.8 L MCHC (33.0 - 37.0 G/DL) 32.2 L RDW (11.5 - 14.5 %) 17.5 H Plt Count (130 - 400 /CUMM) 314 MPV (7.4 - 10.4 FL) 9.0 Gran % (42.2 - 75.2 %) 61.6 Lymphocytes % (20.5 - 51.1 %) 32.0 Monocytes % (1.7 - 9.3 %) 3.5 Eosinophils % (0 - 5 %) 2.0 Basophils % (0.0 - 2.0 %) 0.9 Absolute Granulocytes (1.4 - 6.5 /CUMM) 3.4 Absolute Lymphocytes (1.2 - 3.4 /CUMM) 1.8 Absolute Monocytes (0.10 - 0.60 /CUMM) 0.2 Absolute Eosinophils (0.0 - 0.7 /CUMM) 0.1 Absolute Basophils (0.0 - 0.2 /CUMM) 0 Assessment/Plan Assessment/Plan This is a 72 year old female who is HOD#4 with recurrent sbo and resolved hypokalemia advance to fulls for lunch and low fiber for dinner oob/ambulation hep sc - dvt ppx levemir held accuchecks / riss home meds ordered await full return of bowel function d/w anticipate discharge possibly as early as tomorrow Problem List: 1. Small bowel obstruction Core Measures Venous Thromboembolism VTE Risk Factors Age>40 No Mechanical VTE Prophylaxis d/t N/A MechProphylax Ordered No VTE Pharm Prophylaxis d/t NA PharmProphylax ordered
--- NOTE | 2018-05-13 11:09 | Patient Discharge Instructions ---
Discharge Instructions General Discharge Information You were seen/treated for: Small Bowel Obstruction You had these procedures: None Watch for these problems: Increasing abdominal pain, nausea, vomiting, excessive diarrhea, no bowel movements, or any other problems, questions or concerns Diet Continue normal diet: Yes Recommended Diet: Regular Activity Full Activity/No Limits: Yes Activity Self Limited: Yes Acute Coronary Syndrome Inclusion Criteria At DC or during hospital stay patient has or had the following: ACS DIAGNOSIS No Discharge Core Measures Meds if any: Prescribed or Continued at Discharge Meds if any: NOT Prescribed or Continued at Discharge Congestive Heart Failure Inclusion Criteria At DC or during hospital stay patient has or had the following: CHF DIAGNOSIS No Discharge Core Measures Meds if any: Prescribed or Continued at Discharge Meds if any: NOT Prescribed or Continued at Discharge Cerebrovascular accident Inclusion Criteria At DC or during hospital stay patient has or had the following: CVA/TIA Diagnosis No Discharge Core Measures Meds if any: Prescribed or Continued at Discharge Meds if any: NOT Prescribed or Continued at Discharge Venous thromboembolism Inclusion Criteria VTE Diagnosis No VTE Type NONE VTE Confirmed by (Test) NONE Discharge Core Measures - Per Current guidelines, there needs to be overlap - treatment for the first 5 days of Warfarin therapy. - If discharged on Warfarin prior to 5 days of - overlap therapy, the patient will need to be - assessed for post discharge needs including - *Post discharge parental anticoagulation - *Warfarin and/or parental anticoagulation education - *Follow up date to check INR post discharge At least 5 days overlap therapy as Inpatient No Meds if any: Prescribed or Continued at Discharge Note: Overlap Therapy is Warfarin and Anticoagulant Meds if any: NOT Prescribed or Continued at Discharge
--- NOTE | 2018-05-13 11:25 | Surgical Discharge Summary ---
Visit Information Visit Dates Admission Date: 05/09/18 History of Present Illness Chief Complaint: Abdominal Pain, N/V/C Medical History Cardiovascular: hypertension Gastrointestinal: diverticulitis, recurrent SBOs Musculoskeletal: degen joint disease, osteoarthritis, DDD Psychiatric: depression Endocrine: diabetes History of MRSA: No History of VRE: No History of CDIFF: No Isolation History: Standard Surgical History Pertinent Surgical History: appendectomy, breast biopsy (x 2 (2013, 2013)), hysterectomy (abdominal), -alexx, 2008 -alexx, sb resection for sbo 2006 lysis of adhesions 2007 Family History Relations & Conditions If Any: FATHER Relation not specified for: Diabetes mellitus in father Psychosocial History Who Do You Live With? Patient/Self Services at Home: None What is Your Primary Language? Swazi Review of Systems: as per H&P Hospital Course Course Attending Physician: Vic MATIAS,Rohan Erazo Primary Care Physician: Bailey Garcia APRN Hospital Course: This is a 72 yo F who presents to ED with complaints of abdominal pain, n, v, and constipation. Well known to Dr. Ho and surgical service, with hx recurrent SBOs treated both surgically and conservatively, sp ALEXX (2007), sp ALEXX ,SB rsxn (2006). Small BM yesterday and earlier in the week, received relistor in Ed and had large bm. Dose have chronic pain from OA and takes hydrocodone daily (prescribed 40mg bid with 10mg q6prn). VOmited large amt during ngt placement attempt by ED staff, feeling better now. Denies sob, cp, conde, fever, chills. Reluctant to allow NGT placement, though has agreed. Workup was obtained and revealed an SBO. She was admitted to the surgical service under the care of Dr. Ho. She was made npo, an ngt was placed and IVF were started. She underwent conservative management during her hospital stay. Once she had return of flatus and ngt clamp trial was performed and she passed. Diet was then advanced in a stepwise fashion as she had full return of bowel function. By time of discharge patient was ambulating, voiding, tolerating a low residue diet, was off of analgesia, and had full return of bowel function. Plan is for the patient to follow up with Dr. Ho upon discharge in 1-2 weeks for outpatient follow up. Details of her hospital course and diagnostic studies can be found in her electronic chart. Complications: none Allergies: Coded Allergies: lisinopril (Severe, ANGIODEMA 02/19/16) Significant Procedures: none Disposition Summary Disposition Principal Diagnosis: SBO Additional Diagnosis: none Discharge Disposition: home or self care Discharge Instructions General Discharge Information Code Status: Full Code Patient's Diet: Low residue Patient's Activity: as tolerated Follow-Up Instructions/Appts: see electronic discharge instructions Medications at Discharge Discharge Medications: Continue taking these medications: Insulin Detemir (Levemir Flextouch) 100 UNIT/ML (3 ML) INSULN.PEN 22 Units SC TAKE AT BEDTIME Insulin Aspart, Recombinant (Novolog Flexpen) 100 UNIT/ML INSULN.PEN Units SC 3 TIMES DAILY BEFORE MEALS Polyethylene Glycol 3350 (Miralax) 17 GRAM/DOSE POWDER 17 Gram ORAL DAILY Qty = 527 Instructions: mix with water, juice, soda, coffee or tea Ibuprofen (Ibuprofen) 600 MG TABLET 1 Tablet ORAL TWICE DAILY Qty = 60 Instructions: with food Hydrocodone/Acetaminophen (Hydrocodon-Acetaminophn 10-325) 10 MG-325 MG TABLET 1 Tablet ORAL 4 times daily as needed as needed for PAIN Qty = 60 Hydrocodone Bitartrate (Zohydro ER) 40 MG CAP.ER.12H 1 Capsule ORAL TWICE DAILY Qty = 60 Esomeprazole (Nexium) 40 MG CAPSULE.DR 1 Capsule ORAL DAILY Qty = 90 Hydrochlorothiazide (Hydrochlorothiazide) 25 MG TABLET 1 Tablet ORAL DAILY Qty = 30 Metoprolol Succinate (Metoprolol Succinate) 100 MG TAB.ER.24H 1 Tablet ORAL DAILY Qty = 30 Losartan Potassium (Losartan Potassium) 50 MG TABLET 1 Tablet ORAL DAILY Qty = 30 Diltiazem HCl (Taztia Xt) 360 MG CAPSULE.ER 1 Capsule ORAL DAILY Qty = 30 Albuterol Sulfate (Proair Hfa) 90 MCG HFA.AER.AD 2 Puff Inhale through mouth As Directed as needed for RESP. Aspirin (Ecotrin*) 81 MG TABLET.DR 1 Tablet ORAL DAILY Copies To: Bailey Garcia APRN, MD,Rohan Erazo
[2018-05-13 14:35] VITALS: BP 148/90
[2018-05-13 22:00] VITALS: BP 142/68
[2018-05-14 02:03] VITALS: BP 160/70
[2018-05-14 06:51] VITALS: BP 160/70
--- NOTE | 2018-05-14 07:24 | PN- General Surgery ---
See Addendum Subjective Subjective: Tolerating diet advancement. Denies nausea. Reports having a bm and some flatus. She wants to try breakfast this morning prior to going home today. Objective Vital Signs and I&Os Vital Signs Date Time Temp Pulse Resp B/P B/P Pulse O2 O2 Flow FiO2 Mean Ox Delivery Rate 05/14 0651 99.0 65 20 160/70 96 Room Air 05/14 0203 99.2 77 20 160/70 93 Room Air 05/13 2200 98.2 64 20 142/68 95 Room Air 05/13 2057 64 142/68 05/13 1435 98.6 64 20 148/90 93 Room Air 05/13 1301 Room Air 05/13 0826 98.7 76 20 180/88 Intake & Output 05/14 0800 05/14 0000 05/13 1600 05/13 0800 05/13 0000 05/12 1600 Intake Total 100 340 120 480 360 Output Total 800 400 500 250 Balance -800 100 340 -280 -20 110 Intake, Oral 100 340 120 480 360 Number 0 Bowel Movements Output, Urine 800 400 500 250 Patient 137 lb 143 lb Weight Physical Exam: General - alert & oriented x 3. comfortable. no acute distress. Lungs - clear bilaterally. no w/r/r. Cardiac - s1s2. reg. Abdomen - soft. nontender. Extremities - warm bilaterally. no c/c/e. Assessment/Plan Assessment/Plan This 72 year old female is with recurrent sbo that appears to be resolving, resolved hypokalemia tolerating low fiber diet stopping iv morphine oob/ambulation encouraged hep sc - dvt ppx levemir restarted likely d/c home today will d/w Core Measures Venous Thromboembolism VTE Risk Factors Age>40 No Mechanical VTE Prophylaxis d/t N/A MechProphylax Ordered No VTE Pharm Prophylaxis d/t NA PharmProphylax ordered
[2018-05-14 09:08] VITALS: BP 160/70
== END 2018-05-14 13:31 | DRG 390 ==
LOC: ERH 21:17 → 2NA 05-09 01:22 → ERHI 05-09 01:22 → ENRESERV 05-09 03:35 → 2NA 05-09 04:22 → ENPENDDIS 05-14 07:43 → 2NA 05-14 13:31
PROVIDERS: Emergency Medicine; Nurse Practitioner; Physician Assistant; Physician Assistant Surgical
DX: K56.699 Other intestinal obstruction unspecified as to partial versus complete obstruction (principal); G89.29 Other chronic pain; K59.03 Drug induced constipation; T40.2X5A Adverse effect of other opioids, initial encounter; J45.909 Unspecified asthma, uncomplicated; Z79.4 Long term (current) use of insulin; K21.9 Gastro-esophageal reflux disease without esophagitis; I10 Essential (primary) hypertension; K56.50 Intestinal adhesions [bands], unspecified as to partial versus complete obstruction; R11.10 Vomiting, unspecified; E87.6 Hypokalemia; M19.90 Unspecified osteoarthritis, unspecified site; Z88.8 Allergy status to other drugs, medicaments and biological substances; Z90.710 Acquired absence of both cervix and uterus; E11.9 Type 2 diabetes mellitus without complications
CPT/HCPCS: 2NAP; 36415; 36592; 74021; 74177; 82436; 93005; 93010; 96372; 96374; 96375; 97116-GO; 97161-GP; 99291; J0131; J1644; J1815; J2405; J2765; J3490; J7042; J7508